=== PATIENT | male | born 1955 | race Caucasian/White ===

== ENCOUNTER → 2022-03-31 | Outpatient (CLI) | payer MEDICARE, BC ==
--- NOTE | 2022-03-31 17:10 | CONS ---
CONSULTATION DATE OF SERVICE: 03/31/2022 This 67-year-old gentleman has been evaluated in [facility] for possible obstructive sleep apnea-hypopnea syndrome. HISTORY OF PRESENT ILLNESS/SLEEP-WAKE EVALUATION: Patient's usual sleep schedule is from 10:30 p.m. until 8 a.m. No problems with falling asleep. No TV in bedroom. The patient sleeps in different positions. He has loud snoring and he wakes up from sleep 3 times with 2 episodes of nocturia. No history of hypnagogic hallucinations, sleep paralysis or cataplexy. [place] Sleepiness Scale increased to 10. The patient may take one nap a day, not every day. PAST MEDICAL HISTORY: Positive for hypertension, prostate carcinoma, acid reflux. PAST SURGICAL HISTORY: Prostatectomy, vasectomy. MEDICATIONS: Lisinopril 10 mg once a day, Cialis 5 mg once a day. REVIEW OF SYSTEMS: Multiple awakenings from sleep, loud snoring, sleepiness during the day. No fevers. No double vision. No recent chest pain. No shortness of breath. No abdominal pain. No bleeding episodes. No blood in the urine. No seizure episodes. PHYSICAL EXAMINATION: GENERAL: Pleasant gentleman without distress. VITAL SIGNS: BP 145/77, HR 77, RR 16, height 5 feet 5 inches, weight 156.6 pounds, body mass index 25.9, temperature 97.2, oxygen saturation at room air 96%. HEENT: PERRLA, EOMI, evaluation of oropharynx showed tongue protrudes midline. Extremely low position of soft palate; Mallampati IV. NECK: Supple, no JVD. Thyroid is not palpable. Neck measures 16 inches in circumference. LUNGS: Clear to percussion and to auscultation. Good air exchange. No wheezing or rhonchi. HEART: S1, S2 regular. No murmurs, gallops, or rubs. ABDOMEN: Soft and nontender. Bowel sounds are present. No organomegaly appreciated. EXTREMITIES: No clubbing or cyanosis. MEDICAL COLLECTOR: Awake, alert, and oriented X3. Cranial nerves 2 to 7 intact. There is no fasciculation or atrophy. noted. No focal deficits observed. IMPRESSION: 1. Loud snoring, multiple awakenings from sleep, extremely low position of soft palate, Mallampati IV, sleepiness, [place] Sleepiness Scale of 10; obstructive sleep apnea-hypopnea syndrome. 2. Hypertension. 3. History of prostate carcinoma, status post prostatectomy. 4. Status post vasectomy. 5. Acid reflux. PLAN: 1. Polysomnography for evaluation of patient's breathing during sleep. 2. CPAP/BiPAP titration if sleep study confirms obstructive sleep apnea-hypopnea syndrome. 3. Preferable position during sleep on the side. 4. No driving if patient feels any sleepiness. 5. I will see patient for follow up visit to explain results of testing and following plan. Thank you very much for referring this patient for consultation. Sincerely, Harris Jacobsen MD, PhD, FAASM Diplomat of [place] [employer] Sleep Medicine [employer] of [place] [employer] Smoking Pipe Repairer of [facility] [place] MMODL / IJN: [id number] /
== END ==
LOC: SLEEP 14:24
PROVIDERS: ATTEND Internal Medicine
DX: G47.33 Obstructive sleep apnea (adult) (pediatric) (principal); I10 Essential (primary) hypertension; K21.9 Gastro-esophageal reflux disease without esophagitis; Z85.46 Personal history of malignant neoplasm of prostate; Z90.79 Acquired absence of other genital organ(s); Z98.52 Vasectomy status; Z79.899 Other long term (current) drug therapy
CPT/HCPCS: 99202

== ENCOUNTER 2022-05-06 07:39 | Day surgery (SDC) | payer MEDICARE, BC ==
[2022-05-04 08:57] VITALS: BMI 25.0
[~2022-05-06 07:39] MED LIST: LACTATED RINGERS 1,000 ML IV SCH
[2022-05-06 08:03] VITALS: TEMP 97.4
[2022-05-06] MEDS ORDERED: LIDOCAINE 2% INJ 20 MG/ML (2 ML VIAL) ONE (08:53)
[2022-05-06] MEDS ORDERED: PROPOFOL 10 MG/ML 20 ML VIAL IV ONE (08:53)
--- NOTE | 2022-05-06 08:56 | P.GSHP ---
History of Present Illness H&P Date: 05/06/22 Chief Complaint: History of colon polyps Is a 67-year-old male who has previously history of colon polyps. His last colonoscopy was over 5 years ago. Patient denies a significant GI complaints. Past Medical History Past Medical History: Cancer, GERD/Reflux, Hypertension, Prostate Disorder Additional Past Medical History / Comment(s): hx colon polyps, prostate cancer History of Any Multi-Drug Resistant Organisms: None Reported Past Surgical History: Orthopedic Surgery, Prostate Surgery Additional Past Surgical History / Comment(s): arthroscopy left knee, vasectomy Past Anesthesia/Blood Transfusion Reactions: Previous Problems w/ Anesthesia Additional Past Anesthesia/Blood Transfusion Reaction / Comment(s): "took me a long time to come out" groggy for couple days Smoking Status: Never smoker - Past Family History Father Family Medical History: Cancer Brother(s) Family Medical History: Cancer Medications and Allergies Home Medications Medication Instructions Recorded Confirmed Type Acetaminophen [Tylenol Extra 500 mg PO DIRECTED PRN 05/04/22 05/06/22 History Strength] Cholecalciferol (Vitamin D3) 250 mcg PO DAILY 05/04/22 05/06/22 History [Vitamin D3 (125 MCG = 5,000 IU)] Ibuprofen [Motrin Ib] 400 mg PO BID PRN 05/04/22 05/06/22 History Iodoral 12.5 mg PO DAILY 05/04/22 05/06/22 History Multivitamins, Thera [Multivitamin 1 tab PO DAILY 05/04/22 05/06/22 History (formulary)] [place]-3/Dha/Epa/Fish Oil [Fish Oil 1 each PO DAILY 05/04/22 05/06/22 History 1,000 mg Softgel] Zinc 25 mg PO DAILY 05/04/22 05/06/22 History lisinopriL [Prinivil] 10 mg PO DAILY 05/04/22 05/06/22 History tadalafiL [Cialis] 5 mg PO DAILY 05/04/22 05/06/22 History Allergies Allergy/AdvReac Type Severity Reaction Status Date / Time Penicillins Allergy Unknown Verified 05/06/22 07:52 Childhood Surgical - Exam Vital Signs Temp Pulse Resp BP Pulse Ox 97.4 F L 59 L 18 166/82 98 05/06/22 07:58 05/06/22 07:58 05/06/22 07:58 05/06/22 07:58 05/06/22 07:58 - General well developed, well nourished, no distress - Eyes PERRL - ENT normal pinna - Neck no masses - Respiratory normal expansion - Cardiovascular Rhythm: regular - Abdomen Abdomen: soft, non tender Assessment and Plan Assessment: History of colon polyps. We'll perform colonoscopy.
--- NOTE | 2022-05-06 09:08 | P.OP ---
Date of Procedure: 05/06/22 Preoperative Diagnosis: History of colon polyps Postoperative Diagnosis: Normal colonoscopy Procedure(s) Performed: Colonoscopy Anesthesia: MAC Surgeon: Theron Li Pathology: none sent Condition: stable Disposition: PACU Description of Procedure: PROCEDURE: The patient was placed on the endoscopy table in the lateral position. Digital rectal examination was performed which revealed no abnormalities. The prostate was symmetrical without nodules. Flexible colonoscope was then placed in the patient's anus and passed throughout the entire colon. The ileocecal valve was visualized. The cecum, ascending, transverse, descending and sigmoid colon were normal. The rectum was normal as well. There were no masses, polyps or diverticula noted in the entire colon.
[2022-05-06 09:11] VITALS: RESP 16
[2022-05-06 09:34] VITALS: BP 154/81; PULSE 76
== END 2022-05-06 09:50 | disposition home or self-care (01) ==
LOC: ORWHC2ENDO 07:39
PROVIDERS: ATTEND Surgery
DX: Z86.010 Personal history of colon polyps (principal); K21.9 Gastro-esophageal reflux disease without esophagitis; I10 Essential (primary) hypertension; Z85.46 Personal history of malignant neoplasm of prostate; Z98.52 Vasectomy status; Z79.899 Other long term (current) drug therapy; Z88.0 Allergy status to penicillin; Z80.9 Family history of malignant neoplasm, unspecified
CPT/HCPCS: 45378; J2704; J2001

== ENCOUNTER → 2022-09-15 | Outpatient (CLI) | payer MEDICARE, BC ==
--- NOTE | 2022-09-15 10:06 | CT ---
EXAMINATION TYPE: CT sinus wo con DATE OF EXAM: 09/15/2022 COMPARISON: NONE HISTORY: Chronic Sinusitis CT DLP: 603 mGycm. Automated Exposure Control for Dose Reduction was Utilized. TECHNIQUE: CT scan of the sinuses is performed without contrast, axial images are obtained, coronal r eformatted images are also reviewed. FINDINGS: The paranasal sinuses including the frontal, ethmoid, sphenoid, and maxillary sinuses bila terally are well-aerated without abnormal opacification or suspicious air-fluid levels. The ostiomea norbert complex is patent bilaterally on coronal image 16. Nasal septum is deviated to right of midline. Visualized portion of mastoid air cells show no abnormal opacification. The globes are intact bilate rally. Visualized brain parenchyma is within normal limits. IMPRESSION: The sinuses are clear and the ostiomeatal complex is patent bilaterally.
== END | disposition home or self-care (01) ==
LOC: RADCTMAIN 09:31
PROVIDERS: ATTEND Otolaryngology
DX: J32.9 Chronic sinusitis, unspecified (principal)
CPT/HCPCS: 70486

== ENCOUNTER 2022-11-23 08:44 | Inpatient (IN) | payer MEDICARE, BC ==
[2022-11-23 09:01] LABS: Appearance,Urine Clear (Clear); Bilirubin,Urine Negative (Negative); Blood,Urine Negative (Negative); Color,Urine Yellow; Glucose,Urine (UA) Negative (Negative); Ketones,Urine Negative (Negative); Leukocyte Esterase,Urine Negative (Negative); Nitrite,Urine Negative (Negative); Protein,Urine Trace (Negative); Specific Gravity,Urine 1.021 (1.001-1.035); Urobilinogen,Urine <2.0 mg/dL (<2.0)
--- NOTE | 2022-11-23 10:21 | ED ---
General Adult HPI - General Source: patient Mode of arrival: ambulatory Limitations: no limitations <Adelaida Green - Last Filed: 11/23/22 10:19> - General Source: RN notes reviewed, old records reviewed <Francine Horton - Last Filed: 11/23/22 13:23> - General Chief complaint: Abdominal Pain Stated complaint: possible bowel blockage Time Seen by Provider: 11/23/22 10:19 - History of Present Illness Initial comments: 67-year-old presents to the emergency department with chief complaint of abdominal pain that started at 0100 this morning. He describes his abdominal pain as a "bloating feeling." Last bowel movement was upon arrival. However he notes this feels the same as when he last had a small bowel obstruction. (Adelaida Green) Patient is a 67-year-old male presenting to the emergency Department with complaints of severe abdominal pain that started around 1 AM this morning. Patient does have history of bowel obstruction the past and he states this feels similar. The pain awoke him from sleep around 1 AM and has been persistent so he came in for further evaluation. He did try Tums, Pepcid without improvement. When he got to the ER, he did have a small bowel movement which is mostly liquid. He does feel bloated and slightly distended. His pain is about a 9/10. He does endorse some nausea. Patient's is at bedside and states that in the right here, the pain was so severe that he did turn "hua" and felt like he might pass out. He admits to history of prostate surgery, no abdominal history. Patient denies any chest pain or shortness of breath, no fevers or chills. He states yesterday he felt perfectly fine. He has no further complaints. (Francine Horton) - Related Data Home Medications Medication Instructions Recorded Confirmed Cholecalciferol (Vitamin D3) 250 mcg PO DAILY 05/04/22 11/23/22 [Vitamin D3 (125 MCG = 5,000 IU)] Multivitamins, Thera [Multivitamin 1 tab PO DAILY 05/04/22 11/23/22 (formulary)] [place]-3/Dha/Epa/Fish Oil [Fish Oil 1 cap PO DAILY 05/04/22 11/23/22 1,000 mg Softgel] Zinc 25 mg PO DAILY 05/04/22 11/23/22 lisinopriL [Prinivil] 10 mg PO DAILY 05/04/22 11/23/22 tadalafiL [Cialis] 5 mg PO DAILY 05/04/22 11/23/22 Ascorbic Acid [Vitamin C] 1,000 mg PO DAILY 11/23/22 11/23/22 Quercetin 500mg Tab 500 mg PO DAILY 11/23/22 11/23/22 Allergies Allergy/AdvReac Type Severity Reaction Status Date / Time Penicillins Allergy Rash/Hives Verified 11/23/22 11:55 Review of Systems ROS Other: All systems not noted in ROS Statement are negative. <Adelaida Green - Last Filed: 11/23/22 10:19> ROS Other: All systems not noted in ROS Statement are negative. <Francine Horton - Last Filed: 11/23/22 13:23> ROS Statement: Those systems with pertinent positive or pertinent negative responses have been documented in the HPI. Past Medical History Past Medical History: Hypertension, Prostate Disorder Additional Past Medical History / Comment(s): Bowel obstruction, prostate CA History of Any Multi-Drug Resistant Organisms: None Reported Past Surgical History: Prostate Surgery Past Psychological History: No Psychological Hx Reported Smoking Status: Never smoker Past Alcohol Use History: Occasional Past Drug Use History: None Reported <Adelaida Green - Last Filed: 11/23/22 10:19> General Exam Limitations: no limitations <Adelaida Green - Last Filed: 11/23/22 10:19> <Francine Horton - Last Filed: 11/23/22 13:23> - General Exam Comments Initial Comments: GENERAL: Patient is well-developed and well-nourished. Patient is nontoxic and in no acute distress, but looks very uncomfortable. HEAD: Atraumatic, normocephalic. EYES: Pupils equal round and reactive to light, extraocular movements intact, sclera anicteric, conjunctiva are normal. Eyelids were unremarkable. ENT: Nares patent, oropharynx clear without exudates. Moist mucous membranes. NECK: Normal range of motion, supple without lymphadenopathy or JVD. LUNGS: Unlabored respirations. Breath sounds clear to auscultation bilaterally and equal. No wheezes rales or rhonchi. HEART: Regular rate and rhythm without murmurs, rubs or gallops. ABDOMEN: Patient has generalized abdominal discomfort, more severe in the middle of his abdomen. He does appear slightly distended. Soft. Hypoactive bowel sounds. No guarding, no rebound. No masses appreciated. : Deferred MUSCULOSKELETAL: Normal extremities with adequate strength and normal range of motion, no pitting or edema. No clubbing or cyanosis. NEUROLOGICAL: Patient is alert and oriented x 3. Motor and sensory are also intact. Cranial nerves II through XII grossly intact. Symmetrical smile. Normal speech, normal gait. PSYCH: Normal mood, normal affect. SKIN: Warm, Dry, normal turgor, no rashes or lesions noted. (Francine Horton) Course Vital Signs 11/23/22 08:45 Temperature 98.6 F Pulse Rate 63 Respiratory 20 Rate Blood Pressure 144/78 O2 Sat by Pulse 97 Oximetry Medical Decision Making - Lab Data Result diagrams: 11/23/22 11:04 11/23/22 11:04 <Francine Horton - Last Filed: 11/23/22 13:23> - Medical Decision Making Patient is a 67-year-old male here with abdominal pain started at 1 AM this morning. He has a history of bowel obstructions and this feels similar. Stable upon arrival. Laboratory studies showed a leukocytosis of 10.9, lactic acid is normal. Urine is negative for infection. CT the abdomen and pelvis shows findings suspicious for partial or early complete small bowel section with a right lower quadrant transition point. I spoke with Dr. Li who accepts admission. Patient was reevaluated, his pain has improved. Will place an NG tube and patient will be admitted to the hospital. I also spoke to ANGELA Leyva. Case discussed with Dr. Skinner. Was pt. sent in by a medical professional or institution ([facility], YOUTH WORKER, urgent care, hospital, or senior living...) When possible be specific @ -[No] Did you speak to anyone other than the patient for history (EMS, parent, family, police, friend...)? What history was obtained from this source @ -[No] Did you review nursing and triage notes (agree or disagree)? Why? @ -[I reviewed and agree with nursing and triage notes] Were old charts reviewed (outside hosp., previous admission, EMS record, old EKG, old radiological studies, urgent care reports/EKG's, senior living records)? Report findings @ -[No old charts were reviewed] Differential Diagnosis (chest pain, altered mental status, abdominal pain women, abdominal pain men, vaginal bleeding, weakness, fever, dyspnea, syncope, headache, dizziness, GI bleed, back pain, seizure, CVA, palpatations, mental health)? @ -[Differential Abdominal Pain Men: Appendicitis, cholecystitis, diverticulosis, ischemic bowel, pancreatitis, hepatitis, UTI, gastroenteritis, AAA, incarcerated hernia, bowel obstruction, constipation, inflammatory bowel, hepatitis, peptic ulcer disease, splenic infar ction, perforated viscus, testicular torsion, this is not meant to be an all- inclusive list] EKG interpreted by me (3pts min.). @ -[As above] X-rays interpreted by me (1pt min.). @ -[KUB concerning for polyps checks and] CT interpreted by me (1pt min.). @ -[small bowel obstruction] U/S interpreted by me (1pt. min.). @ -[None done] What testing was considered but not performed or refused? (CT, X-rays, U/S, labs)? Why? @ -[None] What meds were considered but not given or refused? Why? @ -[None] Did you discuss the management of the patient with other professionals (professionals i.e. , PA, YOUTH WORKER, lab, RT, psych nurse, social sciences chair, director of surgery, teacher, hearing officer, casework manager)? Give summary @ -[Dr. Li, Autumn] Was smoking cessation discussed for >3mins.? @ -[No] Was critical care preformed (if so, how long)? @ -[No] Were there social determinants of health that impacted care today? How? (Homelessness, low income, unemployed, alcoholism, drug addiction, transportation, low edu. Level, literacy, decrease access to med. care, fci, rehab)? @ -[No] Was there de-escalation of care discussed even if they declined (Discuss DNR or withdrawal of care, Hospice)? DNR status @ -[No] What co-morbidities impacted this encounter? (DM, HTN, Smoking, COPD, CAD, Cancer, CVA, ARF, Chemo, Hep., AIDS, mental health diagnosis, sleep apnea, morbid obesity)? @ -[None] Was patient admitted / discharged? Hospital course, mention meds given and route, prescriptions, significant lab abnormalities, going to OR and other [facility] netricia info. @ -[admitted to surgery] Undiagnosed new problem with uncertain prognosis? @ -[No] Drug Therapy requiring intensive monitoring for toxicity (Heparin, Nitro, Insulin, Cardizem)? @ -[No] Were any procedures done? @ -[No] Diagnosis/symptom? @ -[abdominal pain, SBO Acute, or Chronic, or Acute on Chronic? @ -[acute] Side effects of treatment? @ -[No] Exacerbation, Progression, or Severe Exacerbation? @ -[No] Poses a threat to life or bodily function? How? (Chest pain, [place], [place], pneumonia, PE, COPD, DKA, ARF, appy, cholecystitis, CVA, Diverticulitis, Homicidal, Suicidal, threat to staff... and all critical care pts) @ -[No] (Francine Horton) - Lab Data Lab Results 11/23/22 11/23/22 11/23/22 Range/Units 08:50 11:04 11:04 WBC 10.9 H (3.8-10.6) k/uL RBC 5.09 (4.30-5.90) m/uL Hgb 15.1 (13.0-17.5) gm/dL Hct 44.8 (39.0-53.0) % MCV 88.0 (80.0-100.0) fL MCH 29.6 (25.0-35.0) pg MCHC 33.6 (31.0-37.0) g/dL RDW 12.9 (11.5-15.5) % Plt Count 203 (150-450) k/uL MPV 8.3 Neutrophils % 86 % Lymphocytes % 6 % Monocytes % 6 % Eosinophils % 0 % Basophils % 0 % Neutrophils # 9.4 H (1.3-7.7) k/uL Lymphocytes # 0.6 L (1.0-4.8) k/uL Monocytes # 0.7 (0-1.0) k/uL Eosinophils # 0.0 (0-0.7) k/uL Basophils # 0.0 (0-0.2) k/uL Sodium 138 (137-145) mmol/L Potassium 4.6 (3.5-5.1) mmol/L Chloride 104 (98-107) mmol/L Carbon Dioxide 30 (22-30) mmol/L Anion Gap 4 mmol/L BUN 17 (9-20) mg/dL Creatinine 0.66 (0.66-1.25) mg/dL Est GFR (CKD-EPI)AfAm >90 (>60 ml/min/1.73 sqM) Est GFR (CKD-EPI)NonAf >90 (>60 ml/min/1.73 sqM) Glucose 116 H (74-99) mg/dL Plasma Lactic Acid [place] (0.7-2.0) mmol/L Calcium 9.2 (8.4-10.2) mg/dL Total Bilirubin 0.6 (0.2-1.3) mg/dL AST 25 (17-59) U/L ALT 24 (4-49) U/L Alkaline Phosphatase 76 (38-126) U/L Total Protein 7.1 (6.3-8.2) g/dL Albumin 4.1 (3.5-5.0) g/dL Urine Color Yellow Urine Appearance Clear (Clear) Urine pH 7.0 (5.0-8.0) Ur Specific [place] 1.021 (1.001-1.035) Urine Protein Trace H (Negative) Urine Glucose (UA) Negative (Negative) Urine Ketones Negative (Negative) Urine Blood Negative (Negative) Urine Nitrite Negative (Negative) Urine Bilirubin Negative (Negative) Urine Urobilinogen <2.0 (<2.0) mg/dL Ur Leukocyte Esterase Negative (Negative) 11/23/22 Range/Units 11:04 WBC (3.8-10.6) k/uL RBC (4.30-5.90) m/uL Hgb (13.0-17.5) gm/dL Hct (39.0-53.0) % MCV (80.0-100.0) fL MCH (25.0-35.0) pg MCHC (31.0-37.0) g/dL RDW (11.5-15.5) % Plt Count (150-450) k/uL MPV Neutrophils % % Lymphocytes % % Monocytes % % Eosinophils % % Basophils % % Neutrophils # (1.3-7.7) k/uL Lymphocytes # (1.0-4.8) k/uL Monocytes # (0-1.0) k/uL Eosinophils # (0-0.7) k/uL Basophils # (0-0.2) k/uL Sodium (137-145) mmol/L Potassium (3.5-5.1) mmol/L Chloride (98-107) mmol/L Carbon Dioxide (22-30) mmol/L Anion Gap mmol/L BUN (9-20) mg/dL Creatinine (0.66-1.25) mg/dL Est GFR (CKD-EPI)AfAm (>60 ml/min/1.73 sqM) Est GFR (CKD-EPI)NonAf (>60 ml/min/1.73 sqM) Glucose (74-99) mg/dL Plasma Lactic Acid [place] 1.3 (0.7-2.0) mmol/L Calcium (8.4-10.2) mg/dL Total Bilirubin (0.2-1.3) mg/dL AST (17-59) U/L ALT (4-49) U/L Alkaline Phosphatase (38-126) U/L Total Protein (6.3-8.2) g/dL Albumin (3.5-5.0) g/dL Urine Color Urine Appearance (Clear) Urine pH (5.0-8.0) Ur Specific [place] (1.001-1.035) Urine Protein (Negative) Urine Glucose (UA) (Negative) Urine Ketones (Negative) Urine Blood (Negative) Urine Nitrite (Negative) Urine Bilirubin (Negative) Urine Urobilinogen (<2.0) mg/dL Ur Leukocyte Esterase (Negative) Disposition <Adelaida Green - Last Filed: 11/23/22 10:19> Decision Date: 11/23/22 Decision Time: 13:22 <Francine Horton - Last Filed: 11/23/22 13:23> Clinical Impression: Small bowel obstruction Disposition: ADMITTED IP TO THIS [facility] Condition: Stable Referrals: Kishan Garay DO [Primary Care Provider] - 1-2 days
[2022-11-23] MEDS ORDERED: MORPHINE SULFATE 4 MG/ML SYRINGE IVP STA (11:04)
[2022-11-23] MEDS ORDERED: SODIUM CHLORIDE 0.9% 1,000 ML IV STA (11:04)
[2022-11-23] MEDS ORDERED: ONDANSETRON 4 MG/2 ML VIAL IVP STA (11:04)
--- NOTE | 2022-11-23 11:20 | XR ---
EXAMINATION TYPE: XR KUB DATE OF EXAM: 11/23/2022 CLINICAL HISTORY: Diffuse abdominal pain, onset today, history of prior obstruction TECHNIQUE: Upright images of the abdomen are obtained. COMPARISON: None. FINDINGS: Multiple mildly dilated loops of small bowel with air-fluid levels in the central and left abdomen. Gas and stool are seen throughout the colon. No free intraperitoneal air. Lung bases are destiny ar. Degenerative changes of the spine. IMPRESSION: Multiple mildly dilated loops of small bowel with air-fluid levels. Gas and stool are present through out the colon. Findings could relate to localized ileus versus an early or partial obstruction, espec ially with known prior history.
[2022-11-23 11:40] LABS: ALT 24 U/L (4-49); AST 25 U/L (17-59); African American GFR (CKD) >90 (>60 ml/min/1.73 sqM); Albumin 4.1 g/dL (3.5-5.0); Alkaline Phosphatase 76 U/L (38-126); Anion Gap 4 mmol/L; Blood Urea Nitrogen 17 mg/dL (9-20); Calcium 9.2 mg/dL (8.4-10.2); Carbon Dioxide 30 mmol/L (22-30); Chloride 104 mmol/L (98-107); Glucose 116 mg/dL (74-99); Non-African American GFR(CKD) >90 (>60 ml/min/1.73 sqM); Potassium 4.6 mmol/L (3.5-5.1); Sodium 138 mmol/L (137-145); Total Bilirubin 0.6 mg/dL (0.2-1.3); Total Protein 7.1 g/dL (6.3-8.2)
[2022-11-23 11:47] LABS: Basophils % (A) 0 %; Eosinophils % (A) 0 %; HCT 44.8 % (39.0-53.0); HGB 15.1 gm/dL (13.0-17.5); Lymphocytes # (A) 0.6 k/uL (1.0-4.8); Lymphocytes % (A) 6 %; MCH 29.6 pg (25.0-35.0); MCHC 33.6 g/dL (31.0-37.0); Mean Platelet Volume 8.3; Monocytes # (A) 0.7 k/uL (0-1.0); Monocytes % (A) 6 %; Neutrophils # (A) 9.4 k/uL (1.3-7.7); Neutrophils % (A) 86 %; Platelet Count 203 k/uL (150-450); RBC 5.09 m/uL (4.30-5.90); RDW 12.9 % (11.5-15.5); WBC 10.9 k/uL (3.8-10.6)
--- NOTE | 2022-11-23 12:39 | CT ---
EXAMINATION TYPE: CT abdomen pelvis w con DATE OF EXAM: 11/23/2022 COMPARISON: None HISTORY: abdominal pain, history of obstructions CT DLP: 851.2 mGycm CONTRAST: CT scan of the abdomen and pelvis is performed without Oral Contrast and with IV Contrast, patient in jected with 100 cc mL of Isovue 300. FINDINGS: LUNG BASES-: No visible nodule. No infiltrate. LIVER/GB: No calcified gallstones. No space occupying hepatic lesion. Biliary tree is of normal ca liber. PANCREAS: No inflammation. No distinct mass. SPLEEN: No splenic enlargement. No lesion seen. ADRENALS: No nodule. No thickening. KIDNEYS/BLADDER: No hydronephrosis. No nephrolithiasis. No distinct renal mass. Urinary bladder g rossly unremarkable. BOWEL: There is nonvisualization of the appendix. There is mild dilatation of the small bowel measuri ng up to 3.5 cm. There appears to be a right lower quadrant transition. No significant decompression of the colon at this time. No evidence for free air or abscess. No inflammatory process seen. GENITAL ORGANS: No gross abnormality. LYMPH NODES: No greater than 1cm abdominal or pelvic lymph nodes are appreciated. AORTA: No significant abnormality. OSSEOUS STRUCTURES: Severe degenerative change in the lumbar spine. OTHER: No significant additional abnormality is seen. IMPRESSION: 1. Findings suspicious for partial or early complete small bowel obstruction with right lower quadran t transition suggested. Findings likely related to adhesions.
[2022-11-23] MEDS ORDERED: NALOXONE 0.4 MG/ML 1 ML VIAL IV PRN (13:23)
[2022-11-23] MEDS ORDERED: ONDANSETRON 4 MG/2 ML VIAL IVP PRN (13:24)
[2022-11-23] MEDS ORDERED: MORPHINE SULFATE 4 MG/ML SYRINGE IV PRN (13:24)
[2022-11-23] MEDS: SODIUM CHLORIDE 0.9% 1,000 ML IV SCH ×2 (13:38→23:17)
--- NOTE | 2022-11-23 14:25 | P.GSHP ---
History of Present Illness H&P Date: 11/23/22 CHIEF COMPLAINT: Abdominal HISTORY OF PRESENT ILLNESS: This is a 67-year-old male with a known history of small bowel obstructions been treated conservatively in the past. Patient reports that he started to have abdominal pain around 1:00 this morning. He has been feeling more bloated distended. Pain located in the middle of the abdomen above the umbilicus. He denies any nausea or vomiting. He had a decrease in his bowel movements. He usually has 2-3 bowel movements a day. He had a very small liquidy stool yesterday and a very small liquidy stool in the ER this morning. He is no longer having any flatus. He reports that he feels similar to his previous bowel obstructions. He had a bowel obstruction in 2019 in 2020. Past abdominal surgical history includes a robotic prostate surgery for prostate cancer. In 2008. Patient had computed tomography scan of abdomen and pelvis showing a partial or early complete small bowel obstruction. Patient had NG tube placed in ER. PAST MEDICAL HISTORY: Hypertension, prostate cancer PAST SURGICAL HISTORY: See below MEDICATIONS: See below ALLERGIES: See below SOCIAL HISTORY: No illicit drug use. REVIEW OF SYSTEMS: CONSTITUTIONAL: Denies fever or chills. HEENT: Denies blurred vision, vision changes, or eye pain. Denies hemoptysis CARDIOVASCULAR: Denies chest pain or pressure. RESPIRATORY: No shortness of breath. GASTROINTESTINAL: See HPI for pertinent findings HEMATOLOGIC: Denies bleeding disorders. GENITOURINARY: Denies any blood in urine or increased urinary frequency. SKIN: Denies pruitis. Denies rash. PHYSICAL EXAM: VITAL SIGNS: Reviewed GENERAL: Well-developed in no acute distress. HEENT: No sclera icterus. Extraocular movements grossly intact. Moist buccal mucosa. Head is atraumatic, normocephalic. No nasal drainage. ABDOMEN: Soft. Mildly distended. Tenderness with palpation above the umbili cus mid abdomen NEUROLOGIC: Alert and oriented. Cranial nerves II through XII grossly intact. LABORATORY DATA: WBC 10.9 hgb 15.1 plt 203 Na 138 k 4.6 cr 0.66 lactic acid 1.3 LFTs normal IMAGING: computed tomography scan abdomen and pelvis findings suspicious for partial or early complete small bowel obstruction with right lower quadrant transition point suggested. Findings likely related to adhesions. ASSESSMENT: 1. Partial or early complete small bowel obstruction with right lower quadrant transition point likely due to adhesions 2. History of prior small bowel obstructions treated conservatively 3. History of robotic prostate surgery PLAN: -Place NG tube for decompression -Keep patient nothing by mouth -Patient is tentatively scheduled for lysis of adhesions tomorrow with Dr. Li -Continue IV fluids -Continue pain medication as needed -Continue antiemetics as needed -Medicine service consulted for medical management Physician Clip Riveter note has been reviewed by physician. Signing provider agrees with the documented findings, assessment, and plan of care. Past Medical History Past Medical History: Hypertension, Prostate Disorder Additional Past Medical History / Comment(s): Bowel obstruction, prostate CA History of Any Multi-Drug Resistant Organisms: None Reported Past Surgical History: Prostate Surgery Past Psychological History: No Psychological Hx Reported Smoking Status: Never smoker Past Alcohol Use History: Occasional Past Drug Use History: None Reported Medications and Allergies Home Medications Medication Instructions Recorded Confirmed Type Cholecalciferol (Vitamin D3) 250 mcg PO DAILY 05/04/22 11/23/22 History [Vitamin D3 (125 MCG = 5,000 IU)] Multivitamins, Thera [Multivitamin 1 tab PO DAILY 05/04/22 11/23/22 History (formulary)] [place]-3/Dha/Epa/Fish Oil [Fish Oil 1 cap PO DAILY 05/04/22 11/23/22 History 1,000 mg Softgel] Zinc 25 mg PO DAILY 05/04/22 11/23/22 History lisinopriL [Prinivil] 10 mg PO DAILY 05/04/22 11/23/22 History tadalafiL [Cialis] 5 mg PO DAILY 05/04/22 11/23/22 History Ascorbic Acid [Vitamin C] 1,000 mg PO DAILY 11/23/22 11/23/22 History Quercetin 500mg Tab 500 mg PO DAILY 11/23/22 11/23/22 History Allergies Allergy/AdvReac Type Severity Reaction Status Date / Time Penicillins Allergy Rash/Hives Verified 11/23/22 11:55 Surgical - Exam Vital Signs Temp Pulse Resp BP Pulse Ox 98.6 F 63 20 144/78 97 11/23/22 08:45 11/23/22 08:45 11/23/22 08:45 11/23/22 08:45 11/23/22 08:45 Results - Labs 11/23/22 11:04 11/23/22 11:04 Abnormal Lab Results - Last 24 Hours (Table) 11/23/22 11/23/22 11/23/22 Range/Units 08:50 11:04 11:04 WBC 10.9 H (3.8-10.6) k/uL Neutrophils # 9.4 H (1.3-7.7) k/uL Lymphocytes # 0.6 L (1.0-4.8) k/uL Glucose 116 H (74-99) mg/dL Urine Protein Trace H (Negative) Diabetes panel 11/23/22 Range/Units 11:04 Sodium 138 (137-145) mmol/L Potassium 4.6 (3.5-5.1) mmol/L Chloride 104 (98-107) mmol/L Carbon Dioxide 30 (22-30) mmol/L BUN 17 (9-20) mg/dL Creatinine 0.66 (0.66-1.25) mg/dL Glucose 116 H (74-99) mg/dL Calcium 9.2 (8.4-10.2) mg/dL AST 25 (17-59) U/L ALT 24 (4-49) U/L Alkaline Phosphatase 76 (38-126) U/L Total Protein 7.1 (6.3-8.2) g/dL Albumin 4.1 (3.5-5.0) g/dL Calcium panel 11/23/22 Range/Units 11:04 Calcium 9.2 (8.4-10.2) mg/dL Albumin 4.1 (3.5-5.0) g/dL Pituitary panel 11/23/22 Range/Units 11:04 Sodium 138 (137-145) mmol/L Potassium 4.6 (3.5-5.1) mmol/L Chloride 104 (98-107) mmol/L Carbon Dioxide 30 (22-30) mmol/L BUN 17 (9-20) mg/dL Creatinine 0.66 (0.66-1.25) mg/dL Glucose 116 H (74-99) mg/dL Calcium 9.2 (8.4-10.2) mg/dL Adrenal panel 11/23/22 Range/Units 11:04 Sodium 138 (137-145) mmol/L Potassium 4.6 (3.5-5.1) mmol/L Chloride 104 (98-107) mmol/L Carbon Dioxide 30 (22-30) mmol/L BUN 17 (9-20) mg/dL Creatinine 0.66 (0.66-1.25) mg/dL Glucose 116 H (74-99) mg/dL Calcium 9.2 (8.4-10.2) mg/dL Total Bilirubin 0.6 (0.2-1.3) mg/dL AST 25 (17-59) U/L ALT 24 (4-49) U/L Alkaline Phosphatase 76 (38-126) U/L Total Protein 7.1 (6.3-8.2) g/dL Albumin 4.1 (3.5-5.0) g/dL
--- NOTE | 2022-11-23 14:45 | XR ---
EXAMINATION TYPE: XR KUB portable DATE OF EXAM: 11/23/2022 CLINICAL HISTORY: Small bowel obstruction, NG tube placement TECHNIQUE: Single portable upright image of the upper abdomen was obtained COMPARISON: Radiograph and CT earlier same day FINDINGS: NG tube tip projects over the stomach. There remains mildly dilated loops of small bowel w ithin the central upper abdomen. Gas and stool is again seen within the colon. Hyperdense contrast se en within the renal calyces from recent IV contrast. The lung bases are clear. IMPRESSION: Appropriate NG tube placement. Otherwise stable findings.
[2022-11-23] MEDS: HYDROmorphone 1 MG/ML 1 ML SYRINGE IVP PRN ×3 (17:16→23:08)
[2022-11-23] MEDS ORDERED: cloNIDine 0.1 MG/24HR PATCH TRANSDERM SCH (19:30)
[2022-11-24] MEDS: HYDROmorphone 1 MG/ML 1 ML SYRINGE IVP PRN ×3 (04:30→11:26)
[2022-11-24] MEDS: SODIUM CHLORIDE 0.9% 1,000 ML IV SCH ×2 (08:16→19:31)
[2022-11-24 10:33] LABS: HCT 41.3 % (39.0-53.0); HGB 13.3 gm/dL (13.0-17.5); MCH 28.8 pg (25.0-35.0); MCHC 32.2 g/dL (31.0-37.0); MCV 89.5 fL (80.0-100.0); Mean Platelet Volume 8.3; Platelet Count 195 k/uL (150-450); RBC 4.61 m/uL (4.30-5.90); RDW 13.1 % (11.5-15.5); WBC 6.8 k/uL (3.8-10.6)
[2022-11-24] MEDS ORDERED: HEPARIN SODIUM,PORCINE/PF 5,000 UNIT/0.5 ML SYRINGE SQ ONE (12:08)
[2022-11-24 12:10] LABS: African American GFR (CKD) >90 (>60 ml/min/1.73 sqM); Anion Gap 3 mmol/L; Blood Urea Nitrogen 15 mg/dL (9-20); Calcium 8.2 mg/dL (8.4-10.2); Carbon Dioxide 28 mmol/L (22-30); Chloride 106 mmol/L (98-107); Glucose 107 mg/dL (74-99); Non-African American GFR(CKD) >90 (>60 ml/min/1.73 sqM); Potassium 4.4 mmol/L (3.5-5.1); Sodium 137 mmol/L (137-145)
[2022-11-24] MEDS ORDERED: LACTATED RINGERS 1,000 ML IV ONE ×2 (12:12→15:05)
[2022-11-24] MEDS ORDERED: MIDAZOLAM 2 MG/2 ML VIAL IVP ONE ×3 (12:35→16:07)
[2022-11-24] MEDS ORDERED: ONDANSETRON 4 MG/2 ML VIAL IVP ONE (13:08)
[2022-11-24] MEDS ORDERED: DEXAMETHASONE SOD PHOSPHATE 4 MG/ML 1 ML VIAL IVP ONE (13:09)
[2022-11-24] MEDS ORDERED: NALOXONE 0.4 MG/ML 1 ML VIAL IV PRN (13:40)
--- NOTE | 2022-11-24 13:40 | P.ANPRN ---
Procedure Note - Anesthesia - Epidural/Spinal Epidural Continuous Time Out Performed: Yes Date of Procedure: 11/24/22 Procedure Start Time: 12:34 Procedure Stop Time: 13:02 Location of Patient: PreOp Indication: Acute Post-Operative Pain Sedation Type: Sedate with meaningful contact maintained Preparation: Sterile Dressing Position: Sitting Catheter: Indwelling Needle Guage: 18 Blood Aspirated: No Pain Paresthesia on Injection Noted: No Events: Uneventful and Well Tolerated (test dose xylocaine 1.5% 3cc given with no side effects)
[2022-11-24] MEDS ORDERED: GLYCOPYRROLATE 0.2 MG/ML 2 ML VIAL ONE (14:22)
[2022-11-24] MEDS ORDERED: SUCCINYLCHOLINE CHLORIDE 200 MG/10 ML VIAL IV ONE (14:22)
[2022-11-24] MEDS ORDERED: ePHEDrine 50 MG/ML 1 ML VIAL ONE (14:22)
[2022-11-24] MEDS ORDERED: LIDOCAINE 2% INJ 20 MG/ML (2 ML VIAL) ONE (14:22)
[2022-11-24] MEDS ORDERED: PROPOFOL 10 MG/ML 20 ML VIAL IV ONE (14:22)
[2022-11-24] MEDS ORDERED: ROCURONIUM 10 MG/ML (5 ML VIAL) IV ONE (14:22)
[2022-11-24] MEDS ORDERED: KETAMINE 10 MG/ML 20 ML VIAL ONE (14:22)
[2022-11-24] MEDS ORDERED: fentaNYL (PF) 50 MCG/ML 2 ML AMP ONE (14:22)
[2022-11-24] MEDS ORDERED: MIDAZOLAM 2 MG/2 ML VIAL ONE (14:22)
[2022-11-24] MEDS ORDERED: NEOSTIGMINE 1 MG/ML 10 ML VIAL ONE (14:22)
[2022-11-24] MEDS ORDERED: SODIUM CHLORIDE 0.9% 50 ML with ceFAZolin 2,000 MG IV ONE ×2 (14:25)
--- NOTE | 2022-11-24 15:21 | P.OP ---
Date of Procedure: 11/24/22 Preoperative Diagnosis: small bowel obstruction Postoperative Diagnosis: small bowel obstruction secondary to adhesions Procedure(s) Performed: exploratory laparotomy Lysis of adhesion Incisional appendectomy Anesthesia: SHEFALI Surgeon: Theron Li Estimated Blood Loss (ml): 25 Pathology: other (appendix) Condition: stable Disposition: PACU Description of Procedure: patient's placed on the operating table in the supine position. he received general anesthesia. the circular nurse attempted to place a Espino catheter however there was resistance in the urethra. This point the Espino catheter was aborted. His abdomen was prepped and draped usual fashion. the abdomen was entered through minimal low midline incision. The abdomen was entered. There was some serosanguineous ascites in the abdominal cavity. The bowel was grossly dilated. The bowel was followed down to the level of the terminal ileum. And in the right lower quadrant there was adhesive band causing a partial mechanical obstruction. The band was lysed. The bowel was then run from the ileocecal yousuf ve to the ligament of Treitz. No other obstruction was seen. An incidental appendectomy was performed. The nasal pedicles divided the Enseal device and the base of the appendix was suture-ligated with 2-0 silk ties and then the appendix was transected sent to pathology. The penicillin base was then inverted into the cecum and secured with a 3-0 GI silk Z stitch. The abdomen was area no being seen. The fascia closed with looped #1. Skin was closed deana. Patient top she will was sent to recovery room in stable condition.
[2022-11-24] MEDS: ROPIVACAINE 250 MG, HYDROMORPHONE (PF) 5 MG in SODIUM CHLORIDE 0.9% 200 ML EPIDURAL PRN ×4 (15:22→17:13)
[2022-11-24] MEDS ORDERED: fentaNYL (PF) 50 MCG/1 ML VIAL IVP ONE (16:07)
[2022-11-24] MEDS ORDERED: fentaNYL (PF) 50 MCG/1 ML VIAL INTRATHECA ONE ×2 (16:18)
--- NOTE | 2022-11-24 18:21 | P.GSCN ---
History of Present Illness Consult date: 11/24/22 Reason for Consult: Urinary retention History of present illness: This is a 67-year-old male that underwent exploratory laparotomy with lysis of adhesion for small bowel obstruction. Attempt to place Espino catheter by nursing staff during surgery was unsuccessful. Urology is consulted for Espino catheter placement. Patient has history of robotic prostatectomy back in 2008 for prostate cancer this was done [facility]. No evidence of prostate cancer recurrence and per patient his PSA has been undetectable. He indicated since his surgery he's been having difficulty voiding which has progressively gotten worse. He has intermittent weak stream with straining. Also having urinary incontinence and uses approximately 3 pads per day. No histories of UTIs or previous urinary retention. Has not had an evaluation by urology for his urinary symptoms. Following his surgery he's been unable to void, having suprapubic pressure. He does have an epidural in place Review of Systems - Constitutional Denies chills, Denies fever - EENT Ears, nose, mouth and throat: Denies dysphagia - Cardiovascular Denies chest pain, Denies shortness of breath - Respiratory Denies cough, Denies 7 - Gastrointestinal Reports abdominal pain - Genitourinary Reports urinary retention, Denies dysuria, Denies flank pain, Denies hematuria - Integumentary Denies rash, Denies unusual bruising - Neurological Denies headaches, Denies syncope Past Medical History Past Medical History: Hypertension, Prostate Disorder Additional Past Medical History / Comment(s): Bowel obstruction, prostate CA History of Any Multi-Drug Resistant Organisms: None Reported Past Surgical History: Prostate Surgery Additional Past Surgical History / Comment(s): vasectomy Past Anesthesia/Blood Transfusion Reactions: No Reported Reaction Past Psychological History: No Psychological Hx Reported Smoking Status: Never smoker Past Alcohol Use History: Occasional Past Drug Use History: None Reported - Past Family History Mother Family Medical History: Hypertension Medications and Allergies Home Medications Medication Instructions Recorded Confirmed Type Cholecalciferol (Vitamin D3) 250 mcg PO DAILY 05/04/22 11/23/22 History [Vitamin D3 (125 MCG = 5,000 IU)] Multivitamins, Thera [Multivitamin 1 tab PO DAILY 05/04/22 11/23/22 History (formulary)] [place]-3/Dha/Epa/Fish Oil [Fish Oil 1 cap PO DAILY 05/04/22 11/23/22 History 1,000 mg Softgel] Zinc 25 mg PO DAILY 05/04/22 11/23/22 History lisinopriL [Prinivil] 10 mg PO DAILY 05/04/22 11/23/22 History tadalafiL [Cialis] 5 mg PO DAILY 05/04/22 11/23/22 History Ascorbic Acid [Vitamin C] 1,000 mg PO DAILY 11/23/22 11/23/22 History Quercetin 500mg Tab 500 mg PO DAILY 11/23/22 11/23/22 History Allergies Allergy/AdvReac Type Severity Reaction Status Date / Time Penicillins Allergy Rash/Hives Verified 11/23/22 11:55 Surgical - Exam Vital Signs Temp Pulse Resp BP Pulse Ox 98.6 F 63 20 144/78 97 11/23/22 08:45 11/23/22 08:45 11/23/22 08:45 11/23/22 08:45 11/23/22 08:45 - General no distress, moderate pain - Eyes normal ocular movement, no pale - ENT normal nares, normal mucosa - Respiratory normal expansion, normal respiratory effort - Abdomen Abdomen: soft, no distended - Genitourinary normal penis with no external lesions - Psychiatric oriented to time, oriented to person, oriented to place Results - Labs 11/24/22 09:33 11/24/22 09:33 Abnormal Lab Results - Last 24 Hours (Table) 11/24/22 Range/Units 09:33 Glucose 107 H (74-99) mg/dL Calcium 8.2 L (8.4-10.2) mg/dL Diabetes panel 11/24/22 Range/Units 09:33 Sodium 137 (137-145) mmol/L Potassium 4.4 (3.5-5.1) mmol/L Chloride 106 (98-107) mmol/L Carbon Dioxide 28 (22-30) mmol/L BUN 15 (9-20) mg/dL Creatinine 0.70 (0.66-1.25) mg/dL Glucose 107 H (74-99) mg/dL Calcium 8.2 L (8.4-10.2) mg/dL Calcium panel 11/24/22 Range/Units 09:33 Calcium 8.2 L (8.4-10.2) mg/dL Pituitary panel 11/24/22 Range/Units 09:33 Sodium 137 (137-145) mmol/L Potassium 4.4 (3.5-5.1) mmol/L Chloride 106 (98-107) mmol/L Carbon Dioxide 28 (22-30) mmol/L BUN 15 (9-20) mg/dL Creatinine 0.70 (0.66-1.25) mg/dL Glucose 107 H (74-99) mg/dL Calcium 8.2 L (8.4-10.2) mg/dL Adrenal panel 11/24/22 Range/Units 09:33 Sodium 137 (137-145) mmol/L Potassium 4.4 (3.5-5.1) mmol/L Chloride 106 (98-107) mmol/L Carbon Dioxide 28 (22-30) mmol/L BUN 15 (9-20) mg/dL Creatinine 0.70 (0.66-1.25) mg/dL Glucose 107 H (74-99) mg/dL Calcium 8.2 L (8.4-10.2) mg/dL Assessment and Plan Assessment: 67-year-old male with retention post Ex-Lap and Lysis of adhesion. History of prostatectomy in 2008, having difficulty voiding and urinary incontinence postsurgery, symptoms worrisome for a bladder neck contracture. Attempted to p lace a Espino catheter by nursing staff was unsuccessful -12-Russian Espino catheter was placed with return of clear urine -Keep Espino catheter in place until patient is ambulatory and close to discharge -Advised we'll need outpatient follow-up with urology to evaluate his bladder neck Contracture and urinary incontinence further Time with Patient: Greater than 30
--- NOTE | 2022-11-24 18:22 | P.PCN ---
Date of Procedure: 11/24/22 Preoperative Diagnosis: Bladder neck contracture Postoperative Diagnosis: Bladder neck contracture Procedure(s) Performed: Espino catheter placement Description of Procedure: Patient penis was prepped sterilely, was able to place a 12-[place] Espino sillicone catheter, was able to navigate the catheter past the bladder neck contracture into the bladder. With return of clear urine. Patient tolerated the procedure well
--- NOTE | 2022-11-24 21:01 | P.CONS ---
History of Present Illness - Reason for Consult Consult date: 11/24/22 Medical management Requesting physician: Theron Li - Chief Complaint Abdominal pain - History of Present Illness This is a pleasant 67-year-old patient follows Dr. Garay. Chronic stable medical conditions include hypertension, does take Cialis,. Yesterday afternoon patient started developing cramping in the abdomen. Followed by nausea. No fever no chills. Had a bowel movement before coming to the hospital. Started having significant abdominal pain. Computed tomography scan in the ER didn't show suspicion for possible/complete small bowel obstruction. With a transition point. Suspicion for adhesions. NG tube was placed. This morning still having some abdominal pain to better. After pain medications. at the bedside. No fever no chills. No cardiac history. Dr. Li is planning to take the patient to THIS afternoon. Review of systems: GEN.: Tired EYES: None HEENT: NG tube NECK: None RESPIRATORY: None CARDIOVASCULAR: None GASTROINTESTINAL: As above GENITOURINARY: None MUSCULOSKELETAL: None LYMPHATICS: None HEMATOLOGICAL: None PSYCHIATRY: None NEUROLOGICAL: None Past medical history to include: Hypertension, prostate cancer, followed by surgery, prior bowel obstruction not requiring surgery 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 Physical examination: VITAL SIGNS: 97, 83, 18, 1 5793, 93% room air GENERAL: BMI 23.5, sitting up in bed. EYES: Pupils equal. Conjunctiva normal. HEENT: External appearance of nose and ears normal, oral cavity grossly normal. NG tube to suction NECK: JVD not raised; masses not palpable. HEART: First and second heart sounds are normal; no edema. LUNGS: Respiratory rate normal; clear to auscultation. ABDOMEN: Soft, tender, no guarding rigidity, liver spleen not palpable, no masses palpable. PSYCH: Alert and oriented x3; mood and affect normal. MUSCULOSKELETAL:No Clubbing/cyanosis;muscles-grossly intact NEUROLOGICAL: Cranial nerves grossly intact; no facial asymmetry, power and sensation grossly intact. LYMPHATICS: No lymph nodes palpable in the axilla and neck INVESTIGATIONS, reviewed in the clinical context: White count 6.8 hemoglobin 13.3 platelets 195 potassium 4.4 creatinine 0.7 Abdominal x-ray film personally reviewed by me: Multiple loops of small bowel dilated with air-fluid levels. Gases stool present in the colon. CT abdomen and pelvis: Suspicion possible/early complete small bowel obstruction. With the right lower quadrant transition suspected. Assessment and plan: -Small bowel obstruction with suspicion of right lower quadrant transition point. NG tube overnight. Slight relief. Dr. Li started to the patient to or today. Suspicion for adhesions. -Essential hypertension Catapres patch 0.1. -Full code IV fluids. Nothing by mouth. NG tube. Plan to go to the OR later this afternoon.. Medically stable to proceed with the same. Care was discussed with the patient and at the bedside. Thank you Dr. Li Past Medical History Past Medical History: Hypertension, Prostate Disorder Additional Past Medical History / Comment(s): Bowel obstruction, prostate CA History of Any Multi-Drug Resistant Organisms: None Reported Past Surgical History: Prostate Surgery Additional Past Surgical History / Comment(s): vasectomy Past Anesthesia/Blood Transfusion Reactions: No Reported Reaction Past Psychological History: No Psychological Hx Reported Smoking Status: Never smoker Past Alcohol Use History: Occasional Past Drug Use History: None Reported - Past Family History Mother Family Medical History: Hypertension Medications and Allergies Home Medications Medication Instructions Recorded Confirmed Type Cholecalciferol (Vitamin D3) 250 mcg PO DAILY 05/04/22 11/23/22 History [Vitamin D3 (125 MCG = 5,000 IU)] Multivitamins, Thera [Multivitamin 1 tab PO DAILY 05/04/22 11/23/22 History (formulary)] [place]-3/Dha/Epa/Fish Oil [Fish Oil 1 cap PO DAILY 05/04/22 11/23/22 History 1,000 mg Softgel] Zinc 25 mg PO DAILY 05/04/22 11/23/22 History lisinopriL [Prinivil] 10 mg PO DAILY 05/04/22 11/23/22 History tadalafiL [Cialis] 5 mg PO DAILY 05/04/22 11/23/22 History Ascorbic Acid [Vitamin C] 1,000 mg PO DAILY 11/23/22 11/23/22 History Quercetin 500mg Tab 500 mg PO DAILY 11/23/22 11/23/22 History Allergies Allergy/AdvReac Type Severity Reaction Status Date / Time Penicillins Allergy Rash/Hives Verified 11/23/22 11:55 Physical Exam Vitals: Vital Signs Temp Pulse Pulse Resp BP BP BP 11/24/22 07:32 98.7 F 77 16 144/71 11/24/22 01:23 98.4 F 86 14 133/76 11/23/22 20:00 16 11/23/22 19:10 98.6 F 71 15 164/79 11/23/22 15:46 98.5 F 78 18 174/84 158/93 11/23/22 15:07 87 16 148/90 Pulse Ox 11/24/22 07:32 96 11/24/22 01:23 95 11/23/22 20:00 11/23/22 19:10 95 11/23/22 15:46 96 11/23/22 15:07 96 Intake and Output 11/23/22 11/24/22 11/24/22 22:59 06:59 14:59 Output Total 350 Balance -350 Output: Gastric Drainage 350 Other: # Voids 1 Weight 63.957 kg Results CBC & Chem 7: 11/24/22 09:33 11/24/22 09:33 Labs: Abnormal Lab Results - Last 24 Hours (Table) 11/23/22 11/23/22 Range/Units 11:04 11:04 WBC 10.9 H (3.8-10.6) k/uL Neutrophils # 9.4 H (1.3-7.7) k/uL Lymphocytes # 0.6 L (1.0-4.8) k/uL Glucose 116 H (74-99) mg/dL
--- NOTE | 2022-11-25 06:56 | P.PN ---
Progress Note - Text 11/25/22 622am 67-year-old male status post lysis of adhesion by Dr. Li. Patient has an epidural catheter was solution running at i 7 mL an hour with a VAS of 3. No motor or sensory deficit noted. Plan to continue epidural infusion and the patient was encouraged to ambulate
[2022-11-25 08:56] LABS: Basophils % (A) 0 %; Eosinophils % (A) 0 %; HCT 41.4 % (39.0-53.0); HGB 13.3 gm/dL (13.0-17.5); Lymphocytes # (A) 1.1 k/uL (1.0-4.8); Lymphocytes % (A) 15 %; MCH 28.6 pg (25.0-35.0); MCHC 32.1 g/dL (31.0-37.0); MCV 89.1 fL (80.0-100.0); Mean Platelet Volume 8.1; Monocytes # (A) 0.7 k/uL (0-1.0); Monocytes % (A) 10 %; Neutrophils # (A) 5.2 k/uL (1.3-7.7); Neutrophils % (A) 70 %; Platelet Count 174 k/uL (150-450); RBC 4.64 m/uL (4.30-5.90); WBC 7.3 k/uL (3.8-10.6)
[2022-11-25] MEDS: SODIUM CHLORIDE 0.9% 1,000 ML IV SCH ×2 (09:15→16:41)
[2022-11-25 09:38] LABS: African American GFR (CKD) >90 (>60 ml/min/1.73 sqM); Anion Gap 3 mmol/L; Blood Urea Nitrogen 14 mg/dL (9-20); Calcium 7.8 mg/dL (8.4-10.2); Carbon Dioxide 27 mmol/L (22-30); Chloride 104 mmol/L (98-107); Glucose 98 mg/dL (74-99); Non-African American GFR(CKD) >90 (>60 ml/min/1.73 sqM); Potassium 4.4 mmol/L (3.5-5.1); Sodium 134 mmol/L (137-145)
--- NOTE | 2022-11-25 09:42 | P.PN ---
Subjective Progress Note Date: 11/25/22 The patient is a 67-year-old male with a past medical history significant for hypertension, bowel obstruction, and prostate cancer. The patient had a robotic prostatectomy in 2008 at [facility]. No evidence of prostate cancer recurrence and per patient his PSA has been undetectable. Since the prostatectomy he and has had difficulty voiding and urinary incontinence which has progressively gotten worse. No history of UTIs or previous urinary retention. His symptoms are worrisome for a bladder neck contracture. He underwent a exploratory laparotomy with lysis of adhesions with on 11/24/22. The patient does have an epidural for pain management. A Espino catheter was unable to be placed in the operating room. Postoperatively the patient was unable to void and had suprapubic pressure. Urology was consulted for a Espino catheter placement. Dr. Su was able to insert a 12-Romanian Espino catheter with return of clear urine. Espino is draining overnight without any issues Objective - Vital Signs Vital signs: Vital Signs Temp 99.3 F 11/25/22 07:15 Pulse 90 11/25/22 07:15 Resp 17 11/25/22 07:15 BP 160/83 11/25/22 07:15 Pulse Ox 97 11/25/22 07:15 FiO2 Intake & Output 11/24/22 11/25/22 11/25/22 18:59 06:59 18:59 Intake Total 1662 Output Total 25 1600 Balance 1637 -1600 Intake: IV 1662 Output: Urine 1600 Estimated Blood Loss 25 Other: Voiding Method Indwelling Catheter - Exam - General no distress, moderate pain - Eyes normal ocular movement, no pale - ENT normal nares, normal mucosa - Respiratory normal expansion, normal respiratory effort - Abdomen Abdomen: soft, no distended - Genitourinary normal penis with no external lesions - Psychiatric oriented to time, oriented to person, oriented to place - Labs CBC & Chem 7: 11/25/22 08:38 11/25/22 08:38 Labs: Abnormal Lab Results - Last 24 Hours (Table) 11/24/22 Range/Units 09:33 Glucose 107 H (74-99) mg/dL Calcium 8.2 L (8.4-10.2) mg/dL Assessment and Plan Assessment: The patient is resting in bed this morning. He states he has not been up ambulating yet. He still has an epidural in place for pain management. His Espino catheter is draining clear yellow urine. The patient states his suprapubic pressure is much better. Plan: - Keep Espino catheter in place until patient is ambulatory and his epidural has been discontinued - Discontinue Espino catheter for voiding trial before discharge - Follow up with urology as outpatient to evaluate his bladder neck contracture and urinary incontinence further Impression and plan of care have been directed as dictated by the signing physician. Anum Benitez nurse practitioner acting as scribe for signing physician. Anum Benitez [facility] [id number] Email: [email or web address] I personally performed and participated in the history, physical, the decision making, I agree with the assessment and plan of STEM FRAZER
[2022-11-25] MEDS: HEPARIN SODIUM,PORCINE/PF 5,000 UNIT/0.5 ML SYRINGE SQ SCH ×2 (10:41→21:01)
--- NOTE | 2022-11-25 15:01 | P.PN ---
Subjective Progress Note Date: 11/25/22 CHIEF COMPLAINT: Small bowel obstruction HISTORY OF PRESENT ILLNESS: Patient is postop day #1 exploratory laparotomy with lysis of adhesion and incidental appendectomy for small bowel obstruction secondary to adhesions. Patient has epidural for pain. He reports his pain is controlled. He denies any nausea or vomiting. Denies any flatus. He did have a low-grade temperature 100.3. He did have some tachycardia at that time. Heart rate has improved 90. Urine output is adequate. He had difficult Espino catheter insertion and therefore urology was consulted to place Espino catheter. Currently afebrile. BP elevated. WBC 7.3 Hgb 13.3 platelets 174 sodium 134 potassium 4.4 creatinine 0.6 Patient seen and examined with Dr. hearn PHYSICAL EXAM: VITAL SIGNS: Reviewed. GENERAL: Well-developed in no acute distress. HEENT: No sclera icterus. Extraocular movements grossly intact. Moist buccal mucosa. Head is atraumatic, normocephalic. ABDOMEN: Mildly distended. Incisional dressing clean dry and intact NEUROLOGIC: Alert and oriented. Cranial nerves II through XII grossly intact. ASSESSMENT: 1. Small bowel obstruction secondary to adhesions status post exploratory laparotomy with lysis of adhesions and incidental appendectomy PLAN: -Continue epidural for pain control -Continue Espino catheter -IV fluids increased to 125 mL per hour -Encouraged patient to use incentive spirometer -Medicine to manage blood pressure -Encouraged patient to increase activity level -Keep patient nothing by mouth until bowel activity -DVT prophylaxis subcu heparin and GI prophylaxis Physician Drone Software Development Engineer note has been reviewed by physician. Signing provider agrees with the documented findings, assessment, and plan of care. Objective - Vital Signs Vital signs: Vital Signs Temp 99.1 F 11/25/22 11:53 Pulse 89 11/25/22 11:53 Resp 17 11/25/22 11:53 BP 171/91 11/25/22 11:53 Pulse Ox 97 11/25/22 11:53 FiO2 Intake & Output 11/24/22 11/25/22 11/25/22 18:59 06:59 18:59 Intake Total 1662 Output Total 25 1600 Balance 1637 -1600 Intake: IV 1662 Output: Urine 1600 Estimated Blood Loss 25 Other: Voiding Method Indwelling Catheter Indwelling Catheter - Labs CBC & Chem 7: 11/25/22 08:38 11/25/22 08:38 Labs: Abnormal Lab Results - Last 24 Hours (Table) 11/25/22 Range/Units 08:38 Sodium 134 L (137-145) mmol/L Calcium 7.8 L (8.4-10.2) mg/dL
[2022-11-25] MEDS ORDERED: cloNIDine 0.1 MG/24HR PATCH TRANSDERM SCH (16:00)
[2022-11-25] MEDS: FAMOTIDINE 20 MG/2 ML VIAL IV SCH (16:38)
[2022-11-25] MEDS ORDERED: ACETAMINOPHEN TAB 325 MG TAB PO PRN (20:03)
--- NOTE | 2022-11-25 20:26 | XR ---
EXAMINATION TYPE: XR chest 1V DATE OF EXAM: 11/25/2022 CLINICAL HISTORY: Fever. TECHNIQUE: Single AP portable frontal upright view of the chest is obtained. COMPARISON: None FINDINGS: There is low lung volumes with 3.1 cm round mass projecting over the left upper lung. The cardiac silhouette size is within normal limits. The osseous structures are intact. IMPRESSION: As above. CT follow-up advised to further evaluate.
--- NOTE | 2022-11-25 20:26 | P.PN ---
Progress Note - Text Progress Note Date: 11/25/22 - Chief Complaint Abdominal pain Hospital course: This is a pleasant 67-year-old patient follows Dr. Garay. Chronic stable medical conditions include hypertension, does take Cialis,. Yesterday afternoon patient started developing cramping in the abdomen. Followed by nausea. No fever no chills. Had a bowel movement before coming to the hospital. Started having significant abdominal pain. Computed tomography scan in the ER didn't show suspicion for possible/complete small bowel obstruction. With a transition point. Suspicion for adhesions. NG tube was placed. This morning still having some abdominal pain to better. After pain m edications. at the bedside. No fever no chills. No cardiac history. Dr. Li is planning to take the patient to THIS afternoon. November 25: Patient underwent lysis of adhesions yesterday. Has abdominal binder. Dr. morris from urology had to place a 12-American Espino catheter. As patient not able to urinate. Patient has an epidural for pain control. No flatus. Discussed with patient and at the at bedside Late in the evening nurse called me that patient's febrile 101. Given the catheterization empirically starting the patient on IV Levaquin. Blood cultures chest x-ray UA and culture have been ordered. Active Medications Acetaminophen (Acetaminophen Tab 325 Mg Tab) 650 mg PO Q6HR PRN PRN Reason: Fever and/ or Pain Clonidine HCl (Clonidine 0.1 Mg/24hr Patch) 1 patch TRANSDERM Q7D [facility] Last Admin: 11/25/22 16:38 Dose: 1 patch Famotidine (Famotidine 20 Mg/2 Ml Vial) 20 mg IV DAILY [facility] Last Admin: 11/25/22 16:38 Dose: 20 mg Heparin Sodium (Porcine) (Heparin Sodium,Porcine/Pf 5,000 Unit/0.5 Ml Syringe) 5,000 unit SQ Q12HR [facility] Last Admin: 11/25/22 10:41 Dose: 5,000 unit Hydromorphone HCl (Hydromorphone 1 Mg/Ml 1 Ml Syringe) 1 mg IVP Q3HR PRN PRN Reason: Pain Sodium Chloride (Saline 0.9%) 1,000 mls @ 125 mls/hr IV .Q8H [facility] Last Admin: 11/25/22 16:41 Dose: 125 mls/hr Ropivacaine 250 mg/Hydromorphone HCl 5 mg/ Sodium Chloride 250 mls @ 0 mls/hr EPIDURAL .Q0M PRN; Protocol PRN Reason: Pain Control Last Admin: 11/24/22 17:13 Dose: 12 mls Levofloxacin 750 mg/ IV (Solution) 150 mls @ 100 mls/hr IVPB Q24H [facility]; Protocol Naloxone HCl (Naloxone 0.4 Mg/Ml 1 Ml Vial) 0.2 mg IV Q2M PRN PRN Reason: Opioid Reversal Ondansetron HCl (Ondansetron 4 Mg/2 Ml Vial) 4 mg IVP Q8HR PRN PRN Reason: Nausea And Vomiting Last Admin: 11/23/22 16:05 Dose: 4 mg Triamcinolone Acetonide (Triamcinolone Acet 0.1% Oral Paste 5 Gm Tube) 1 applic MUCOUS MEM PC-TID [facility] Past medical history to include: Hypertension, prostate cancer, followed by surgery, prior bowel obstruction not requiring surgery 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 Physical examination: VITAL SIGNS: 100.3, 121, 15, 144/78, 94% on 2 L earlier GENERAL: Sitting up in bed EYES: Pupils equal. Conjunctiva normal. HEENT: External appearance of nose and ears normal, oral cavity grossly normal. NG tube to suction NECK: JVD not raised; masses not palpable. HEART: First and second heart sounds are normal; no edema. LUNGS: Respiratory rate normal; clear to auscultation. ABDOMEN: Soft, tender, binder in place. Espino catheter. Urine clear. PSYCH: Alert and oriented x3; mood and affect normal. INVESTIGATIONS, reviewed in the clinical context: November 25: White count 7.3 mm globin 13.3 platelets 134 potassium 4.4 creatinine 0.69 White count 6.8 hemoglobin 13.3 platelets 195 potassium 4.4 creatinine 0.7 Abdominal x-ray film personally reviewed by me: Multiple loops of small bowel dilated with air-fluid levels. Gases stool present in the colon. CT abdomen and pelvis: Suspicion possible/early complete small bowel obstruction. With the right lower quadrant transition suspected. Assessment and plan: -Small bowel obstruction with lysis of adhesions on November [address] iL Remains nothing by mouth. IV fluids -Bladder outflow obstruction 12-American Espino catheter placed by Dr. morris -Postoperative fever. 101.1: New Start IV Levaquin. Blood culture. Check sticks rate, UA with culture done. -Essential hypertension Catapres patch 0.1. -Full code IV fluids. Panculture. IV Levaquin. Thank you Dr. Li
[2022-11-25] MEDS: LEVOFLOXACIN 750MG-D5W PMX 750 MG in DEXTROSE/WATER 1 150ML.BAG IVPB SCH (21:00)
[2022-11-25] MEDS: TRIAMCINOLONE ACET 0.1% ORAL PASTE 5 GM TUBE MUCOUS MEM SCH (21:00)
[2022-11-25 21:05] LABS: Appearance,Urine Clear (Clear); Bilirubin,Urine Negative (Negative); Blood,Urine Negative (Negative); Color,Urine Light Yellow; Glucose,Urine (UA) Negative (Negative); Ketones,Urine 2+ (Negative); Leukocyte Esterase,Urine Negative (Negative); Nitrite,Urine Negative (Negative); Protein,Urine Negative (Negative); Specific Gravity,Urine 1.013 (1.001-1.035); Urobilinogen,Urine <2.0 mg/dL (<2.0)
[2022-11-25] MEDS: ROPIVACAINE 250 MG, HYDROMORPHONE (PF) 5 MG in SODIUM CHLORIDE 0.9% 200 ML EPIDURAL PRN (23:38)
[2022-11-26] MEDS: SODIUM CHLORIDE 0.9% 1,000 ML IV SCH ×4 (02:13→22:04)
--- NOTE | 2022-11-26 07:40 | P.PN ---
Progress Note - Text Progress Note Date: 11/26/22 Patient doing well w/o complaints. Ambulated briefly yesterday. Pain 6/10 and worse with movement. Pain mostly in the upper abdomen. Epidural @ 7 ml/hr. Denies headache or backache. Currently on acetaminophen and hydromorphone for breakthrough. Back - epidural site clean and dry A/P POD # 3 s/p ex lap. Epidural day # 2 (replaced) - may d/c epidural or keep another day - if epidural d/c, consider acetaminophen and ketorolac around the clock for 1-2 days - continue breakthrough hydromorphone
[2022-11-26 08:28] LABS: African American GFR (CKD) >90 (>60 ml/min/1.73 sqM); Anion Gap 4 mmol/L; Blood Urea Nitrogen 14 mg/dL (9-20); Calcium 7.8 mg/dL (8.4-10.2); Carbon Dioxide 28 mmol/L (22-30); Chloride 100 mmol/L (98-107); Glucose 76 mg/dL (74-99); Non-African American GFR(CKD) >90 (>60 ml/min/1.73 sqM); Potassium 4.1 mmol/L (3.5-5.1); Sodium 132 mmol/L (137-145)
[2022-11-26 08:38] LABS: Basophils % (A) 0 %; Eosinophils % (A) 1 %; HCT 38.7 % (39.0-53.0); HGB 12.6 gm/dL (13.0-17.5); Lymphocytes % (A) 17 %; MCH 28.8 pg (25.0-35.0); MCHC 32.7 g/dL (31.0-37.0); Mean Platelet Volume 8.4; Monocytes # (A) 0.8 k/uL (0-1.0); Monocytes % (A) 14 %; Neutrophils % (A) 66 %; Platelet Count 148 k/uL (150-450); RDW 12.7 % (11.5-15.5); WBC 6.1 k/uL (3.8-10.6)
[2022-11-26] MEDS: FAMOTIDINE 20 MG/2 ML VIAL IV SCH (09:34)
[2022-11-26] MEDS: HEPARIN SODIUM,PORCINE/PF 5,000 UNIT/0.5 ML SYRINGE SQ SCH ×2 (09:36→22:04)
--- NOTE | 2022-11-26 12:08 | P.PN ---
Subjective Progress Note Date: 11/26/22 CHIEF COMPLAINT: Small bowel obstruction HISTORY OF PRESENT ILLNESS: Patient is postop day #2 exploratory laparotomy with lysis of adhesion and incidental appendectomy for small bowel obstruction secondary to adhesions. Patient has epidural for pain. He reports his pain is controlled. He did have a fever of 101.1 last night and a low-grade temp of 100.5 this morning with mild tachycardia. Patient denies any nausea vomiting. Denies any bowel activity. WBC is 6.1 Hgb is 12.6 platelets 148 sodium is 132 potassium is 4.1 creatinine 0.78 Patient seen and examined with Dr. hearn PHYSICAL EXAM: VITAL SIGNS: Reviewed. GENERAL: Well-developed in no acute distress. HEENT: No sclera icterus. Extraocular movements grossly intact. Moist buccal mucosa. Head is atraumatic, normocephalic. ABDOMEN: Mildly distended. Incision clean dry and intact NEUROLOGIC: Alert and oriented. Cranial nerves II through XII grossly intact. ASSESSMENT: 1. Small bowel obstruction secondary to adhesions status post exploratory laparotomy with lysis of adhesions and incidental appendectomy 2. Fever likely due to atelectasis PLAN: -Keep patient nothing by mouth except for ice chips and popsicles -Continue epidural for pain control -Continue Espino catheter -Abdominal dressing changed to Optifoam silver -Continue IV fluids -Encouraged patient to use incentive spirometer -Encouraged patient to increase activity level -DVT prophylaxis subcu heparin and GI prophylaxis Physician Wet Milling Wheel Operator note has been reviewed by physician. Signing provider agrees with the documented findings, assessment, and plan of care. Objective - Vital Signs Vital signs: Vital Signs Temp 98.9 F 11/26/22 07:34 Pulse 94 11/26/22 07:34 Resp 17 11/26/22 07:34 BP 160/88 11/26/22 07:34 Pulse Ox 97 11/26/22 07:34 FiO2 Intake & Output 11/25/22 11/26/22 11/26/22 18:59 06:59 18:59 Output Total 800 1150 2500 Balance -800 -1150 -2500 Output: Urine 800 1150 2500 Uretheral (Espino) 2500 Stool 0 Emesis 0 Other: Voiding Method Indwelling Catheter Indwelling Catheter Indwelling Catheter # Bowel Movements 0 # Emeses 0 - Labs CBC & Chem 7: 11/26/22 06:40 11/26/22 06:40 Labs: Abnormal Lab Results - Last 24 Hours (Table) 11/25/22 11/26/22 11/26/22 Range/Units 20:21 06:40 06:40 Hgb 12.6 L (13.0-17.5) gm/dL Hct 38.7 L (39.0-53.0) % Plt Count 148 L (150-450) k/uL Sodium 132 L (137-145) mmol/L Calcium 7.8 L (8.4-10.2) mg/dL Urine Ketones 2+ H (Negative)
--- NOTE | 2022-11-26 13:14 | P.CNPUL ---
History of Present Illness Consult date: 11/26/22 Requesting physician: Manfred Beaulieu (review of) Reason for consult: lung mass Chief complaint: abdominal pain History of present illness: I'm seeing this patient today 11/26/2022 in consultation for what was believed to be a new left upper lobe pulmonary mass. Upon further examination of the [facility] x-ray from 11/25/2022, this is not a mass, but external Artifact. Patient has a pain pump with ropivacaine infusing through a catheter. This catheter was draped over the patient's left chest, the suspected artifact is shaped the same as the suspected mass found on x-ray. The patient has a pertinent medical history of being a lifelong nonsmoker, hypertension, small bowel obstruction status post repair, and prostate CA. The patient was originally admitted on 11/23/22 with the chief concern of abdominal pain. Patient had an evaluation which involved an abdominal CT, which showed suspicious findings of a partial or early complete small bowel obstruction in the right lower quadrant, likely henry ggesting adhesions. The patient underwent an exploratory laparotomy on 11/24/[address] Li, and had a lysis of adhesions with appendectomy. the patient is currently sitting up,on 2 L nasal cannula, in no acute distress. patient was mildly febrile overnight with a T-max of 101.1F. patient's CBC and BMP were stable from today.patient is receiving empiric Levaquin. incentive spirometer is at bedside. patient is also receiving DVT prophylaxis in the form of subq heparin and GI prophylaxis with Pepcid. vital signs are stable. Review of Systems REVIEW OF SYSTEMS: CONSTITUTIONAL: Denies any recent significant weight loss or weight gain. EYES: Denies change in vision. EARS, NOSE, MOUTH, THROAT: Denies headaches, denies sore throat. CARDIOVASCULAR: Denies chest pain, palpitations or syncopal episodes. RESPIRATORY: Denies shortness of breath, cough, congestion or hemoptysis. GASTROINTESTINAL: Denies change in appetite. admits incisional abdominal pain with coughing and deep breathing and/or palpation. GENITOURINARY: Denies hematuria, denies infections. MUSKULOSKELETAL: Denies pain, denies swelling. INTEGUMENTARY: Denies rash, denies eczema. NEUROLOGICAL: Denies recent memory loss, no recent seizure activity. PSYCHIATRIC: Denies anxiety, denies depression. HEMATOLOGIC/LYMPHATIC: Denies anemia, denies enlarged lymph node Past Medical History Past Medical History: Hypertension, Prostate Disorder Additional Past Medical History / Comment(s): Bowel obstruction, prostate CA History of Any Multi-Drug Resistant Organisms: None Reported Past Surgical History: Prostate Surgery Additional Past Surgical History / Comment(s): vasectomy Past Anesthesia/Blood Transfusion Reactions: No Reported Reaction Past Psychological History: No Psychological Hx Reported Smoking Status: Never smoker Past Alcohol Use History: Occasional Past Drug Use History: None Reported - Past Family History Mother Family Medical History: Hypertension Medications and Allergies Home Medications Medication Instructions Recorded Confirmed Type Cholecalciferol (Vitamin D3) 250 mcg PO DAILY 05/04/22 11/23/22 History [Vitamin D3 (125 MCG = 5,000 IU)] Multivitamins, Thera [Multivitamin 1 tab PO DAILY 05/04/22 11/23/22 History (formulary)] Rayle-3/Dha/Epa/Fish Oil [Fish Oil 1 cap PO DAILY 05/04/22 11/23/22 History 1,000 mg Softgel] Zinc 25 mg PO DAILY 05/04/22 11/23/22 History lisinopriL [Prinivil] 10 mg PO DAILY 05/04/22 11/23/22 History tadalafiL [Cialis] 5 mg PO DAILY 05/04/22 11/23/22 History Ascorbic Acid [Vitamin C] 1,000 mg PO DAILY 11/23/22 11/23/22 History Quercetin 500mg Tab 500 mg PO DAILY 11/23/22 11/23/22 History Allergies Allergy/AdvReac Type Severity Reaction Status Date / Time Penicillins Allergy Rash/Hives Verified 11/23/22 11:55 Physical Exam Vitals: Vital Signs Temp Pulse Resp BP Pulse Ox 11/26/22 07:34 98.9 F 94 17 160/88 97 11/26/22 01:31 100.5 F H 109 H 14 157/88 93 L 11/25/22 23:52 98.5 F 11/25/22 20:00 15 11/25/22 18:59 101.1 F H 107 H 15 172/97 92 L Intake and Output 11/25/22 11/26/22 11/26/22 22:59 06:59 14:59 Output Total 800 1150 2500 Balance -800 -1150 -2500 Output: Urine 800 1150 2500 Uretheral (Espino) 2500 Stool 0 Emesis 0 Other: Voiding Method Indwelling Catheter Indwelling Catheter # Bowel Movements 0 # Emeses 0 GENERAL EXAM: Alert, 67-year-old male, comfortable in no apparent distress. HEAD: Normocephalic and atraumatic EYES: Normal reaction of pupils, equal size. NOSE: Clear with pink turbinates. THROAT: No erythema or exudates. NECK: No masses, no JVD. CHEST: No chest wall deformity. LUNGS: Equal air entry with no crackles, wheeze, rhonchi or dullness.on 2 L nasal cannula. No conversational dyspnea or accessory muscle use.. external IV catheter line draped over same anatomical location seen on the chest x-ray on 11/25/2022. CVS: S1 and S2 normal with no audible murmur, regular rhythm. ABDOMEN: No hepatosplenomegaly, active bowel sounds, no guarding or rigidity. incisional dressing is clean dry and intact SPINE: No scoliosis or deformity SKIN: No rashes CENTRAL NERVOUS SYSTEM: No focal deficits, tone is normal in all 4 extremities. EXTREMITIES: There is no peripheral edema, clubbing, or cyanosis. Peripheral pulses are intact. Results - Laboratory Findings CBC and BMP: 11/26/22 06:40 11/26/22 06:40 Abnormal lab findings: Abnormal Labs 11/23/22 11/23/22 11/23/22 08:50 11:04 11:04 WBC 10.9 H Hgb Hct Plt Count Neutrophils # 9.4 H Lymphocytes # 0.6 L Sodium Glucose 116 H Calcium Urine Protein Trace H Urine Ketones 11/24/22 11/25/22 11/25/22 09:33 08:38 20:21 WBC Hgb Hct Plt Count Neutrophils # Lymphocytes # Sodium 134 L Glucose 107 H Calcium 8.2 L 7.8 L Urine Protein Urine Ketones 2+ H 11/26/22 11/26/22 06:40 06:40 WBC Hgb 12.6 L Hct 38.7 L Plt Count 148 L Neutrophils # Lymphocytes # Sodium 132 L Glucose Calcium 7.8 L Urine Protein Urine Ketones - Diagnostic Findings Chest x-ray: image reviewed Assessment and Plan Assessment: small bowel obstruction status post lysis of adhesions on 11/24/2022. Patient also underwent an incidental appendectomy at this time. Suspected new pulmonary "mass". Was found to be external artifact related to a epidural IV line. IV line was in the same shape and anatomical location as suspected pulmonary "mass". hypertension History of prostate CA with prostatectomy plan Patient's suspected pulmonary mass was found to be external artifact as a result of a epidural IV line draped over the left chest. Continue incentive spirometer use No further pulmonary recommendations at this time. We will follow as needed. I have personally seen and examined the patient, performed the documentation and the assessment and plan as written. Number of minutes spent on the visit: 20. Time with Patient: Greater than 30
[2022-11-26] MEDS: TRIAMCINOLONE ACET 0.1% ORAL PASTE 5 GM TUBE MUCOUS MEM SCH ×3 (13:56→18:28)
[2022-11-26 14:34] VITALS: BMI 23.4
--- NOTE | 2022-11-26 16:05 | P.PN ---
Progress Note - Text Progress Note Date: 11/26/22 - Chief Complaint Abdominal pain Hospital course: This is a pleasant 67-year-old patient follows Dr. Garay. Chronic stable medical conditions include hypertension, does take Cialis,. Yesterday afternoon patient started developing cramping in the abdomen. Followed by nausea. No fever no chills. Had a bowel movement before coming to the hospital. Started having significant abdominal pain. Computed tomography scan in the ER didn't show suspicion for possible/complete small bowel obstruction. With a transition point. Suspicion for adhesions. NG tube was placed. This morning still having some abdominal pain to better. After pain m edications. at the bedside. No fever no chills. No cardiac history. Dr. Li is planning to take the patient to THIS afternoon. November 25: Patient underwent lysis of adhesions yesterday. Has abdominal binder. Dr. morris from urology had to place a 12-Venezuelan Espino catheter. As patient not able to urinate. Patient has an epidural for pain control. No flatus. Discussed with patient and at the at bedside Late in the evening nurse called me that patient's febrile 101. Given the catheterization empirically starting the patient on IV Levaquin. Blood cultures chest x-ray UA and culture have been ordered. April 26: Temperature 100.5 overnight. On IV Zosyn. IV fluids. Epidural. Remains nothing by mouth. Some abdominal distention. Using incentive spirometry. Chest x-ray showing 3.1 cm mass. Well-circumscribed. Pulmonary was consulted.-Rose[place] to be external artifact. UA unremarkable. No flatus. No respiratory symptoms. Active Medications Acetaminophen (Acetaminophen Tab 325 Mg Tab) 650 mg PO Q6HR PRN PRN Reason: Fever and/ or Pain Last Admin: 11/25/22 20:59 Dose: 650 mg Hydrocodone Bitart/Acetaminophen (Hydrocodone/Apap 5-325mg 1 Each Tab) 1 each PO Q4HR PRN PRN Reason: Pain Clonidine HCl (Clonidine 0.1 Mg/24hr Patch) 1 patch TRANSDERM Q7D [facility] Last Admin: 11/25/22 16:38 Dose: 1 patch Famotidine (Famotidine 20 Mg/2 Ml Vial) 20 mg IV DAILY [facility] Last Admin: 11/26/22 09:34 Dose: 20 mg Heparin Sodium (Porcine) (Heparin Sodium,Porcine/Pf 5,000 Unit/0.5 Ml Syringe) 5,000 unit SQ Q12HR [facility] Last Admin: 11/26/22 09:36 Dose: 5,000 unit Hydromorphone HCl (Hydromorphone 1 Mg/Ml 1 Ml Syringe) 1 mg IVP Q3HR PRN PRN Reason: Pain Sodium Chloride (Saline 0.9%) 1,000 mls @ 125 mls/hr IV .Q8H [facility] Last Admin: 11/26/22 09:30 Dose: 125 mls/hr Ropivacaine 250 mg/Hydromorphone HCl 5 mg/ Sodium Chloride 250 mls @ 0 mls/hr EPIDURAL .Q0M PRN; Protocol PRN Reason: Pain Control Last Admin: 11/25/22 23:38 Dose: 7 mls/hr Levofloxacin 750 mg/ IV (Solution) 150 mls @ 100 mls/hr IVPB Q24H [facility]; Protocol Last Admin: 11/25/22 21:00 Dose: 100 mls/hr Naloxone HCl (Naloxone 0.4 Mg/Ml 1 Ml Vial) 0.2 mg IV Q2M PRN PRN Reason: Opioid Reversal Ondansetron HCl (Ondansetron 4 Mg/2 Ml Vial) 4 mg IVP Q8HR PRN PRN Reason: Nausea And Vomiting Last Admin: 11/23/22 16:05 Dose: 4 mg Triamcinolone Acetonide (Triamcinolone Acet 0.1% Oral Paste 5 Gm Tube) 1 applic MUCOUS MEM PC-TID [facility] Last Admin: 11/26/22 15:39 Dose: 1 applic Past medical history to include: Hypertension, prostate cancer, followed by surgery, prior bowel obstruction not requiring surgery 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 Physical examination: VITAL SIGNS: T-max 100.5, 94, 17, 132/90, 95% room air GENERAL: Sitting up in bed EYES: Pupils equal. Conjunctiva normal. HEENT: External appearance of nose and ears normal, oral cavity grossly normal. NG tube to suction NECK: JVD not raised; masses not palpable. HEART: First and second heart sounds are normal; no edema. LUNGS: Respiratory rate normal; clear to auscultation. ABDOMEN: Soft, tender, binder in place. Espino catheter. Urine clear. PSYCH: Alert and oriented x3; mood and affect normal. INVESTIGATIONS, reviewed in the clinical context: November 26: White count 6.1 hemoglobin 12.6 sodium 132 potassium 4.1 creatinine 0.78 November 25: White count 7.3 mm globin 13.3 platelets 134 potassium 4.4 creatinine 0.69 White count 6.8 hemoglobin 13.3 platelets 195 potassium 4.4 creatinine 0.7 Abdominal x-ray film personally reviewed by me: Multiple loops of small bowel dilated with air-fluid levels. Gases stool present in the colon. CT abdomen and pelvis: Suspicion possible/early complete small bowel obstructi on. With the right lower quadrant transition suspected. Assessment and plan: -Small bowel obstruction with lysis of adhesions on November [address] Li Remains nothing by mouth. IV fluids -Bladder outflow obstruction 12-V[place]an Espino catheter placed by Dr. morris -Postoperative fever. IV Levaquin. Blood culture pending.. UA unremarkable. -Essential hypertension Catapres patch 0.1. -Full code IV fluids. Patient is also discussed with the patient.. IV Levaquin. Thank you Dr. Li
--- NOTE | 2022-11-26 19:08 | P.PN ---
Progress Note - Text Progress Note Date: 11/26/22 no acute overnight events, continues to have good urine output. No issues with the catheter clogging -Keep Espino catheter until patient is ambulatory, in close discharge -We will eventually need outpatient evaluation for his bladder neck contracture -Espino can be irrigated as needed
[2022-11-26] MEDS: LEVOFLOXACIN 750MG-D5W PMX 750 MG in DEXTROSE/WATER 1 150ML.BAG IVPB SCH (22:04)
[2022-11-27] MEDS: SODIUM CHLORIDE 0.9% 1,000 ML IV SCH ×2 (06:30→22:46)
[2022-11-27] MEDS ORDERED: HYDROcodone/APAP 5-325MG 1 EACH TAB PO PRN (08:00)
--- NOTE | 2022-11-27 08:40 | P.PN ---
Subjective Progress Note Date: 11/27/22 Principal diagnosis: Bowel obstruction Patient doing better today. He is now afebrile. He had flatus yesterday. Tolerating popsicles. No nausea or vomiting. Epidural and Espino catheter remain in place. Labs pending. Objective - Vital Signs Vital signs: Vital Signs Temp 98.4 F 11/27/22 07:29 Pulse 98 11/27/22 07:29 Resp 16 11/27/22 07:29 BP 155/82 11/27/22 07:29 Pulse Ox 97 11/27/22 08:02 FiO2 Intake & Output 11/26/22 11/27/22 11/27/22 18:59 06:59 18:59 Output Total 3200 400 Balance -3200 -400 Weight 63.957 kg Output: Urine 3200 400 Uretheral (Espino) 2500 Stool 0 Emesis 0 Other: Voiding Method Indwelling Catheter Indwelling Catheter # Bowel Movements 0 # Emeses 0 - Exam Abdomen: Soft, nondistended, dressing clean and dry, mild tenderness - Labs CBC & Chem 7: 11/26/22 06:40 11/26/22 06:40 Labs: Microbiology - Last 24 Hours (Table) 11/25/22 20:43 Blood Culture - Preliminary Blood No Growth after 24 hours 11/25/22 20:43 Blood Culture - Preliminary Blood No Growth after 24 hours Assessment and Plan (1) Small bowel obstruction Narrative/Plan: Patient doing better at this time. Begin clear liquids. Remove epidural. May remove Espino catheter from our standpoint. This will be reviewed with urology. Ambulate. Current Visit: Yes Status: Acute Code(s): K56.609 - UNSP INTESTNL OBST, UNSP TO PARTIAL VERSUS COMPLETE OBST SNOMED Code(s): 054381109
[2022-11-27 08:49] LABS: Basophils # (A) 0.01 X 10*3/uL (0.00-0.10); Basophils % (A) 0.2 %; Eosinophils # (A) 0.06 X 10*3/uL (0.04-0.35); Eosinophils % (A) 1.2 %; HCT 37.6 % (39.6-50.0); HGB 11.9 g/dL (13.0-17.0); Immature Grans, Automated 0.6 %; Lymphocytes # (A) 1.08 X 10*3/uL (0.90-5.00); Lymphocytes % (A) 21.9 %; MCH 28.3 pg (27.0-32.0); MCHC 31.6 g/dL (32.0-37.0); MCV 89.3 fL (80.0-97.0); Mean Platelet Volume 11.3 fL (9.5-12.2); Monocytes # (A) 0.73 X 10*3/uL (0.20-1.00); Monocytes % (A) 14.8 %; NRBC Per 100 WBC 0 /100 WBCS (0.0-0.0); Neutrophils # (A) 3.02 X 10*3/uL (1.80-7.70); Neutrophils % (A) 61.3 %; Platelet Count 176 X 10*3/uL (140-440); RBC 4.21 X 10*6/uL (4.40-5.60); RDW 12.6 % (11.5-14.5); WBC 4.93 X 10*3/uL (4.50-10.00)
[2022-11-27] MEDS: TRIAMCINOLONE ACET 0.1% ORAL PASTE 5 GM TUBE MUCOUS MEM SCH ×3 (09:01→18:23)
[2022-11-27] MEDS: FAMOTIDINE 20 MG/2 ML VIAL IV SCH (09:01)
[2022-11-27] MEDS: HEPARIN SODIUM,PORCINE/PF 5,000 UNIT/0.5 ML SYRINGE SQ SCH ×2 (09:02→22:46)
[2022-11-27 09:11] LABS: African American GFR (CKD) 113.2 (60.0-200.0); Anion Gap 10.8 mmol/L (10.00-18.00); BUN/Creat Ratio 18.14 Ratio (12.00-20.00); Blood Urea Nitrogen 12.7 mg/dL (9.0-27.0); Calcium 8.2 mg/dL (8.7-10.3); Carbon Dioxide 27.2 mmol/L (20.0-27.5); Non-African American GFR(CKD) 97.7 (60.0-200.0)
--- NOTE | 2022-11-27 10:38 | P.PN ---
Progress Note - Text Progress Note Date: 11/27/22 ([id number]) Anesthesia Postop day #3 Status post auditory laparotomy with epidural day #4 Patient seen and examined. Doing well without complaint. VAS 0 out of 10. No nausea vomiting or pruritus. Epidural is currently stopped. Objective: Vital signs reviewed Lungs: Good chest excursion Abdomen: Appears nondistended Other: Epidural Site Intact without induration. Dressing intact Neuro: No apparent motor block. Sensory within normal limits. Assessment: Status post exploratory laparotomy postop day #3 Plan: Continue current care with your medical management. Order written for epidural pull 6 hours after last subcu heparin. May resume subcu heparin immediately after
[2022-11-27] MEDS: HYDROmorphone 1 MG/ML 1 ML SYRINGE IVP PRN (16:43)
[2022-11-27] MEDS: LEVOFLOXACIN 750MG-D5W PMX 750 MG in DEXTROSE/WATER 1 150ML.BAG IVPB SCH (22:42)
[2022-11-28] MEDS: SODIUM CHLORIDE 0.9% 1,000 ML IV SCH ×3 (03:12→10:03)
--- NOTE | 2022-11-28 03:17 | PN ---
PROGRESS NOTE DATE OF SERVICE: 11/27/2022 SUBJECTIVE: This is a 67-year-old gentleman, who was admitted with small-bowel obstruction, lysis of adhesion. He is being closely monitored. Epidural has been removed. No chest pain. No palpitations. No fever. OBJECTIVE: VITAL SIGNS: Pulse 73, blood pressure ntd respirations 16. CHEST: Clear to auscultation. CARDIOVASCULAR: S1 and S2. ABDOMEN: Soft. Status post surgery. LABORATORY DATA: Hemoglobin 11.9. The rest of the labs are noted. ASSESSMENT: 1. Small bowel obstruction, status post lysis of adhesions. 2. Bladder outflow obstruction. 3. Possibility of fever. 4. Hypertension. 5. Multiple medications. RECOMMENDATIONS: Recommend to continue current management and treatment, closely follow with Surgery. Further recommendations to follow. See orders for details. MMODL / IJN: [id number] / MTDD
[2022-11-28] MEDS: HYDROmorphone 1 MG/ML 1 ML SYRINGE IVP PRN ×2 (04:28→13:05)
[2022-11-28] MEDS: HEPARIN SODIUM,PORCINE/PF 5,000 UNIT/0.5 ML SYRINGE SQ SCH ×2 (09:35→20:45)
[2022-11-28] MEDS: TRIAMCINOLONE ACET 0.1% ORAL PASTE 5 GM TUBE MUCOUS MEM SCH ×3 (09:35→17:05)
[2022-11-28] MEDS: FAMOTIDINE 20 MG/2 ML VIAL IV SCH (09:53)
--- NOTE | 2022-11-28 12:02 | P.PN ---
Subjective Progress Note Date: 11/28/22 Principal diagnosis: Bowel obstruction Patient doing better today. Espino catheter remains in place. Epidural was removed. Pain is controlled. Denies nausea or vomiting. Tolerating clears. He did have flatus. Objective - Vital Signs Vital signs: Vital Signs Temp 98.7 F 11/28/22 07:35 Pulse 75 11/28/22 07:35 Resp 18 11/28/22 07:35 BP 170/87 11/28/22 07:35 Pulse Ox 94 L 11/28/22 07:53 FiO2 21 11/28/22 07:53 Intake & Output 11/27/22 11/28/22 11/28/22 18:59 06:59 18:59 Output Total 1300 1100 700 Balance -1300 -1100 -700 Output: Urine 1300 1100 700 Stool 0 0 Other: Voiding Method Indwelling Catheter Indwelling Catheter Indwelling Catheter - Exam Abdomen: Soft, nondistended, incision clean and dry, mild tenderness - Labs CBC & Chem 7: 11/27/22 06:22 11/27/22 06:22 Labs: Microbiology - Last 24 Hours (Table) 11/25/22 20:43 Blood Culture - Preliminary Blood No Growth after 48 hours 11/25/22 20:43 Blood Culture - Preliminary Blood No Growth after 48 hours Assessment and Plan (1) Small bowel obstruction Narrative/Plan: Patient gradually improving. Will advance diet to full liquids. Ambulate. Anticipate removal of Espino catheter tomorrow if okay with urology. Possible discharge on Tuesday if doing well otherwise. Current Visit: Yes Status: Acute Code(s): K56.609 - UNSP INTESTNL OBST, UNSP TO PARTIAL VERSUS COMPLETE OBST SNOMED Code(s): 237147794
[2022-11-28] MEDS ORDERED: HYDROcodone/APAP 7.5-325MG 1 EACH TAB PO PRN (13:32)
[2022-11-28] MEDS: HYDROcodone/APAP 7.5-325MG 1 EACH TAB PO PRN ×2 (16:01→20:50)
[2022-11-28] MEDS: lisinopriL 10 MG TAB PO SCH (17:05)
[2022-11-28] MEDS: KETOROLAC 15 MG/ML 1 ML VIAL IVP SCH (17:55)
[2022-11-28] MEDS: LEVOFLOXACIN 750MG-D5W PMX 750 MG in DEXTROSE/WATER 1 150ML.BAG IVPB SCH (20:43)
[2022-11-29] MEDS: HYDROcodone/APAP 7.5-325MG 1 EACH TAB PO PRN ×2 (04:06→23:43)
[2022-11-29] MEDS: KETOROLAC 15 MG/ML 1 ML VIAL IVP SCH ×5 (06:04→23:40)
[2022-11-29] MEDS ORDERED: SODIUM CHLORIDE 0.9% 500 ML 500 ML IV ONE (06:40)
--- NOTE | 2022-11-29 07:37 | PN ---
PROGRESS NOTE DATE OF SERVICE: 11/28/2022 SUBJECTIVE: This is a 67-year-old gentleman, admitted after small-bowel obstruction, is being closely monitored. The patient's epidural catheter has been removed. No chest pain. No palpitations. No fever. OBJECTIVE: VITAL SIGNS: Pulse 74, blood pressure 174/87, respirations 18. CHEST: Clear to auscultation. CARDIOVASCULAR: S1 and S2. ABDOMEN: Soft, status post surgery. LABORATORY DATA: Reviewed. ASSESSMENT: 1. Acute small-bowel obstruction, status post lysis of adhesions. 2. Bladder outflow obstruction. 3. Postoperative fever. 4. Hypertension. 5. Multiple medications. RECOMMENDATIONS: Recommend to continue current management and treatment, otherwise, I would recommend resuming some of the home medications. See orders for details. Further recommendations to follow. MMODL / IJN: [id number] /
[2022-11-29] MEDS: TRIAMCINOLONE ACET 0.1% ORAL PASTE 5 GM TUBE MUCOUS MEM SCH ×3 (08:35→18:08)
[2022-11-29] MEDS: lisinopriL 10 MG TAB PO SCH (08:35)
[2022-11-29] MEDS: HEPARIN SODIUM,PORCINE/PF 5,000 UNIT/0.5 ML SYRINGE SQ SCH ×2 (08:35→20:06)
[2022-11-29] MEDS: FAMOTIDINE 20 MG/2 ML VIAL IV SCH (08:35)
--- NOTE | 2022-11-29 12:09 | P.PN ---
Subjective Progress Note Date: 11/29/22 CHIEF COMPLAINT: Small bowel obstruction HISTORY OF PRESENT ILLNESS: Patient is postop day #5 exploratory laparotomy with lysis of adhesion and incidental appendectomy for small bowel obstruction secondary to adhesions. Patient reports that his pain is better controlled today after the addition of Toradol and increased dosage of [place]. He denies any nausea or vomiting. He is having small amount of flatus. He is being followed by urology regarding the Espino catheter. The recommending Espino cathet er stays until patient is more ambulatory and closer to discharge. Afebrile. WBC 4.3 hemoglobin 11.9 on November 27 Patient seen and examined with Dr. hearn PHYSICAL EXAM: VITAL SIGNS: Reviewed. GENERAL: Well-developed in no acute distress. HEENT: No sclera icterus. Extraocular movements grossly intact. Moist buccal mucosa. Head is atraumatic, normocephalic. ABDOMEN: Soft. Mildly distended. Incisional dressing clean dry and intact NEUROLOGIC: Alert and oriented. Cranial nerves II through XII grossly intact. ASSESSMENT: 1. Small bowel obstruction secondary to adhesions status post exploratory laparotomy with lysis of adhesions and incidental appendectomy 2. Fever likely due to atelectasis PLAN: -Continue full liquid diet -Continue pain management -Continue Espino catheter per urology -Encouraged patient to use incentive spirometer -Encouraged patient to increase activity level -DVT prophylaxis subcu heparin and GI prophylaxis Physician Publicity Writer note has been reviewed by physician. Signing provider agrees with the documented findings, assessment, and plan of care. Objective - Vital Signs Vital signs: Vital Signs Temp 97.6 F 11/29/22 07:20 Pulse 62 11/29/22 07:20 Resp 18 11/29/22 07:20 BP 151/86 11/29/22 07:20 Pulse Ox 97 11/29/22 07:20 FiO2 21 11/28/22 07:53 Intake & Output 11/28/22 11/29/22 11/29/22 18:59 06:59 18:59 Intake Total 590 Output Total 700 200 Balance -700 390 Intake: Oral 590 Output: Urine 700 200 Other: Voiding Method Indwelling Catheter Indwelling Catheter Indwelling Catheter # Voids 4 - Labs CBC & Chem 7: 11/27/22 06:22 11/27/22 06:22 Labs: Microbiology - Last 24 Hours (Table) 11/25/22 20:43 Blood Culture - Preliminary Blood No Growth after 72 hours 11/25/22 20:43 Blood Culture - Preliminary Blood No Growth after 72 hours
--- NOTE | 2022-11-29 12:40 | P.PN ---
Progress Note - Text Progress Note Date: 11/29/22 The Espino catheter is draining clear yellow urine. 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 The catheter may be removed when no longer medically needed, and he will follow up with Dr. Su as an outpatient. Please notify us if we can be of further assistance.
[2022-11-29 13:02] VITALS: RESP 16
[2022-11-29] MEDS ORDERED: bisacodyL 10 MG SUPP RECTAL STA (14:40)
[2022-11-29] MEDS: SODIUM CHLORIDE 0.9% 1,000 ML IV SCH ×2 (15:40→18:31)
[2022-11-30] MEDS: KETOROLAC 15 MG/ML 1 ML VIAL IVP SCH ×4 (05:53→23:14)
--- NOTE | 2022-11-30 06:18 | P.PN ---
Subjective Progress Note Date: 11/29/22 - Chief Complaint Abdominal pain Hospital course: This is a pleasant 67-year-old patient follows Dr. Garay. Chronic stable medical conditions include hypertension, does take Cialis,. Yesterday afternoon patient started developing cramping in the abdomen. Followed by nausea. No fever no chills. Had a bowel movement before coming to the hospital. Started having significant abdominal pain. Computed tomography scan in the ER didn't show suspicion for possible/complete small bowel obstruction. With a transition point. Suspicion for adhesions. NG tube was placed. This morning still having some abdominal pain to better. After pain medication s. at the bedside. No fever no chills. No cardiac history. Dr. Li is planning to take the patient to THIS afternoon. November 25: Patient underwent lysis of adhesions yesterday. Has abdominal binder. Dr. morris from urology had to place a 12-Kyrgyz Espino catheter. As patient not able to urinate. Patient has an epidural for pain control. No flatus. Discussed with patient and at the at bedside Late in the evening nurse called me that patient's febrile 101. Given the catheterization empirically starting the patient on IV Levaquin. Blood cultures chest x-ray UA and culture have been ordered. April 26: Temperature 100.5 overnight. On IV Zosyn. IV fluids. Epidural. Remains nothing by mouth. Some abdominal distention. Using incentive spirometry. Chest x-ray showing 3.1 cm mass. Well-circumscribed. Pulmonary was consulted.-[place] to be external artifact. UA unremarkable. No flatus. No respiratory symptoms. 11/29/2022 Patient is seen and evaluated follow-up status post exploratory laparotomy with lysis of adhesions for small bowel obstruction. Patient admitted to general surgery being closely monitored. Patient is being advanced diet and reports to having cast with no bowel movement as of yet. Patient with some urinary retention requiring indwelling Espino catheter to be placed by urology and they recommending continuing with Espino catheter for now and possible trial void closer to discharge. Patient reports has been getting up and walking encouraged to increase activity as tolerated. Recommend incentive spirometer at the bedside at least 10 times every hour while awake. Patient reports he has no further fevers and WBC is normal and refusing any further antibiotics. IV Levaquin discontinued. Urinalysis was negative blood cultures as well. Will monitor off antibiotic therapy. Active Medications Acetaminophen (Acetaminophen Tab 325 Mg Tab) 650 mg PO Q6HR PRN PRN Reason: Fever and/ or Pain Last Admin: 11/25/22 20:59 Dose: 650 mg Hydrocodone Bitart/Acetaminophen (Hydrocodone/Apap 7.5-325mg 1 Each Tab) 1 each PO Q4H PRN PRN Reason: Pain Last Admin: 11/29/22 23:43 Dose: 1 each Clonidine HCl (Clonidine 0.1 Mg/24hr Patch) 1 patch TRANSDERM Q7D [facility] Last Admin: 11/25/22 16:38 Dose: 1 patch Famotidine (Famotidine 20 Mg/2 Ml Vial) 20 mg IV DAILY [facility] Last Admin: 11/29/22 08:35 Dose: 20 mg Heparin Sodium (Porcine) (Heparin Sodium,Porcine/Pf 5,000 Unit/0.5 Ml Syringe) 5,000 unit SQ Q12HR [facility] Last Admin: 11/29/22 20:06 Dose: 5,000 unit Hydromorphone HCl (Hydromorphone 1 Mg/Ml 1 Ml Syringe) 1 mg IVP Q3HR PRN PRN Reason: Pain Last Admin: 11/28/22 13:05 Dose: 1 mg Sodium Chloride (Saline 0.9%) 1,000 mls @ 40 mls/hr IV .Q24H [facility] Last Admin: 11/29/22 18:31 Dose: 40 mls/hr Ketorolac Tromethamine (Ketorolac 15 Mg/Ml 1 Ml Vial) 15 mg IVP Q6HR [facility] Stop: 12/01/22 13:31 Last Admin: 11/30/22 05:53 Dose: 15 mg Lisinopril (Lisinopril 10 Mg Tab) 10 mg PO DAILY [facility] Last Admin: 11/29/22 08:35 Dose: 10 mg Naloxone HCl (Naloxone 0.4 Mg/Ml 1 Ml Vial) 0.2 mg IV Q2M PRN PRN Reason: Opioid Reversal Ondansetron HCl (Ondansetron 4 Mg/2 Ml Vial) 4 mg IVP Q8HR PRN PRN Reason: Nausea And Vomiting Last Admin: 11/23/22 16:05 Dose: 4 mg Triamcinolone Acetonide (Triamcinolone Acet 0.1% Oral Paste 5 Gm Tube) 1 applic MUCOUS MEM PC-TID [facility] Last Admin: 11/29/22 18:08 Dose: 1 applic Physical examination: GENERAL: Sitting up in bed EYES: Pupils equal. Conjunctiva normal. HEENT: External appearance of nose and ears normal, oral cavity grossly normal. NG tube to suction NECK: JVD not raised; masses not palpable. HEART: First and second heart sounds are normal; no edema. LUNGS: Respiratory rate normal; clear to auscultation. ABDOMEN: Soft, tender, binder in place. Espino catheter. Urine clear. PSYCH: Alert and oriented x3; mood and affect normal. Assessment: -Small bowel obstruction with lysis of adhesions on November [address] 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 Patient is now afebrile with no signs of infection and WBCs is within normal limits, or analysis was negative and blood cultures remain negative, patient is refusing antibiotics -Essential hypertension -Full code Plan: Recommend to continue with current medications and management with general surgery attending Continue gentle IV fluids patient was given a bolus this morning for lower blood pressures recommend monitoring blood pressures closely Patient was started on IV Levaquin although refusing reports has no white count and no fever, will discontinue and monitor off antibiotics Patient reports is passing gas but no bowel movement as of yet and encouraged increased activity as tolerated Diet advance pressure history Urology following as well recommend trial of voiding over the next day or so once closer to discharge and will continue with indwelling Espino catheter for retention Due to multiple complex medical issues, prognosis is guarded We will continue to follow with general surgery during hospitalization. Thank you kindly for this consultation. The impression and plan of care has been dictated by nurse patience Paredes ctitioner as directed. Dr. Felipa MD I have performed a history and examination and MDM of this patient, discussed the same with the dictator, and agree with the dictator's assessment and plan as written ,documented as a scribe. Based on total visit time, I have performed more than 50% of the visit. Any additional findings or plans will be noted. Objective - Vital Signs Vital signs: Vital Signs Temp 97.6 F 11/29/22 07:20 Pulse 62 11/29/22 07:20 Resp 18 11/29/22 07:20 BP 151/86 11/29/22 07:20 Pulse Ox 97 11/29/22 07:20 FiO2 21 11/28/22 07:53 Intake & Output 11/28/22 11/29/22 11/29/22 18:59 06:59 18:59 Intake Total 590 Output Total 700 200 Balance -700 390 Intake: Oral 590 Output: Urine 700 200 Other: Voiding Method Indwelling Catheter Indwelling Catheter Indwelling Catheter # Voids 4 - Labs CBC & Chem 7: 11/27/22 06:22 11/27/22 06:22 Labs: Microbiology - Last 24 Hours (Table) 11/25/22 20:43 Blood Culture - Preliminary Blood No Growth after 72 hours 11/25/22 20:43 Blood Culture - Preliminary Blood No Growth after 72 hours
[2022-11-30] MEDS: FAMOTIDINE 20 MG/2 ML VIAL IV SCH (08:00)
[2022-11-30] MEDS: HEPARIN SODIUM,PORCINE/PF 5,000 UNIT/0.5 ML SYRINGE SQ SCH ×2 (08:00→20:20)
[2022-11-30] MEDS: lisinopriL 10 MG TAB PO SCH (08:00)
[2022-11-30] MEDS: TRIAMCINOLONE ACET 0.1% ORAL PASTE 5 GM TUBE MUCOUS MEM SCH ×3 (08:00→18:19)
[2022-11-30 09:16] LABS: Basophils # (A) 0.01 X 10*3/uL (0.00-0.10); Basophils % (A) 0.2 %; Eosinophils # (A) 0.09 X 10*3/uL (0.04-0.35); Eosinophils % (A) 2.1 %; HCT 37.1 % (39.6-50.0); HGB 11.7 g/dL (13.0-17.0); Immature Grans, Automated 0.5 %; Lymphocytes # (A) 1.66 X 10*3/uL (0.90-5.00); MCH 28.1 pg (27.0-32.0); MCHC 31.5 g/dL (32.0-37.0); MCV 89.2 fL (80.0-97.0); Mean Platelet Volume 11.2 fL (9.5-12.2); Monocytes # (A) 0.51 X 10*3/uL (0.20-1.00); Monocytes % (A) 11.7 %; NRBC Per 100 WBC 0 /100 WBCS (0.0-0.0); Neutrophils # (A) 2.08 X 10*3/uL (1.80-7.70); Neutrophils % (A) 47.5 %; Platelet Count 185 X 10*3/uL (140-440); RBC 4.16 X 10*6/uL (4.40-5.60); RDW 12.6 % (11.5-14.5); WBC 4.37 X 10*3/uL (4.50-10.00)
--- NOTE | 2022-11-30 11:17 | P.PN ---
Subjective Progress Note Date: 11/30/22 The patient is a 67-year-old male with a past medical history significant for hypertension, bowel obstruction, and prostate cancer. The patient had a robotic prostatectomy in 2008 at [facility]. No evidence of prostate cancer recurrence and per patient his PSA has been undetectable. Since the prostatectomy he and has had difficulty voiding and urinary incontinence which has progressively gotten worse. No history of UTIs or previous urinary retention. His symptoms are worrisome for a bladder neck contracture. He underwent a exploratory laparotomy with lysis of adhesions with on 11/24/22. The patient does have an epidural for pain management. A Pradhan catheter was unable to be placed in the operating room. Postoperatively the patient was unable to void and had suprapubic pressure. Urology was consulted for a Pradhan catheter placement. Dr. Su was able to insert a 12-Yoruba Pradhan catheter with return of clear urine. 11/29 The Pradhan catheter is draining clear yellow urine. 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 The catheter may be removed when no longer medically needed, and he will follow up with Dr. Su as an outpatient. Dr. Fletcher was notified that the patient was having penile edema. Objective - Vital Signs Vital signs: Vital Signs Temp 97.4 F L 11/30/22 07:28 Pulse 59 L 11/30/22 07:28 Resp 16 11/30/22 07:28 BP 158/86 11/30/22 07:28 Pulse Ox 98 11/30/22 07:28 FiO2 21 11/29/22 20:07 Intake & Output 11/29/22 11/30/22 11/30/22 18:59 06:59 18:59 Intake Total 590 Output Total 1650 700 Balance -1650 -110 Weight 63.957 kg Intake: Oral 590 Output: Urine 1650 700 Other: Voiding Method Indwelling Catheter Indwelling Catheter - Exam - General no distress, moderate pain - Eyes normal ocular movement, no pale - ENT normal nares, normal mucosa - Respiratory normal expansion, normal respiratory effort - Abdomen Abdomen: soft, no distended - Genitourinary Penile and scrotal edema present, pradhan catheter present with clear yellow urine draining - Psychiatric oriented to time, oriented to person, oriented to place - Labs CBC & Chem 7: 11/30/22 05:34 11/27/22 06:22 Labs: Abnormal Lab Results - Last 24 Hours (Table) 11/30/22 Range/Units 05:34 WBC 4.37 L (4.50-10.00) X 10*3/uL RBC 4.16 L (4.40-5.60) X 10*6/uL Hgb 11.7 L (13.0-17.0) g/dL Hct 37.1 L (39.6-50.0) % MCHC 31.5 L (32.0-37.0) g/dL Microbiology - Last 24 Hours (Table) 11/25/22 20:43 Blood Culture - Preliminary Blood No Growth after 96 hours 11/25/22 20:43 Blood Culture - Preliminary Blood No Growth after 96 hours Assessment and Plan Assessment: The patient was seen lying in bed. The patient has some dependent penile and scrotal edema due to IV fluids and inactivity. We expect this to improve without any intervention as the patient increases his activity level. The patient's Pradhan catheter removal discussed with surgical PA. The patient's Pradhan catheter to be removed now. The patient will be encouraged to drink fluids and the patient must void before being discharged today. Plan: - Remove Pradhan catheter, okay with Dr. Li - Patient may be discharged from a urological standpoint after he voids - Follow up with Dr. Su and our office in 1-2 weeks Impression and plan of care have been directed as dictated by the signing physician. Anum Benitez nurse practitioner acting as scribe for signing physician. Anum Benitez [facility] Palliative Care/Urology [facility] [id number] Email: [email or web address] I have personally seen and examined the patient, reviewed the documentation and agree with the assessment and plan as written. Number of minutes spent on the visit: 15. Gulshan Fletcher MD
--- NOTE | 2022-11-30 15:52 | P.PN ---
Subjective Progress Note Date: 11/30/22 CHIEF COMPLAINT: Small bowel obstruction HISTORY OF PRESENT ILLNESS: Patient is postop day #6 status post exploratory laparotomy with lysis of adhesion and incidental appendectomy for small bowel obstruction secondary to adhesions. Patient reports his pain is better today. He is having bowel movements. Denies any nausea or vomiting. Did tolerate regular diet. Patient is worried about urinary retention. He does have an stricture. Followed by urology. Espino catheter removed. Patient being sanam tored for any urinary retention. Afebrile. Hemoglobin 11.7 Patient seen and examined with Dr. hearn PHYSICAL EXAM: VITAL SIGNS: Reviewed. GENERAL: Well-developed in no acute distress. HEENT: No sclera icterus. Extraocular movements grossly intact. Moist buccal mucosa. Head is atraumatic, normocephalic. ABDOMEN: Soft. Mildly distended. Incisional dressing clean dry and intact NEUROLOGIC: Alert and oriented. Cranial nerves II through XII grossly intact. ASSESSMENT: 1. Small bowel obstruction secondary to adhesions status post exploratory laparotomy with lysis of adhesions and incidental appendectomy 2. Fever likely due to atelectasis. Fever resolved. PLAN: -Continue regular diet -Monitor for urinary retention -Anticipate discharge tomorrow -Encouraged patient to use incentive spirometer -Encouraged patient to increase activity level -DVT prophylaxis subcu heparin and GI prophylaxis Physician Pocketbook Maker note has been reviewed by physician. Signing provider agrees with the documented findings, assessment, and plan of care. Objective - Vital Signs Vital signs: Vital Signs Temp 97.4 F L 11/30/22 07:28 Pulse 59 L 11/30/22 07:28 Resp 16 11/30/22 07:28 BP 158/86 11/30/22 07:28 Pulse Ox 98 11/30/22 07:28 FiO2 21 11/29/22 20:07 Intake & Output 11/29/22 11/30/22 11/30/22 18:59 06:59 18:59 Intake Total 590 Output Total 9164 027 7857 Balance -1650 -110 -1500 Weight 63.957 kg Intake: Oral 590 Output: Urine 4946 [id number] Uretheral (Espino) 1500 Other: Voiding Method Indwelling Catheter Indwelling Catheter Indwelling Catheter - Labs CBC & Chem 7: 11/30/22 05:34 11/27/22 06:22 Labs: Abnormal Lab Results - Last 24 Hours (Table) 11/30/22 Range/Units 05:34 WBC 4.37 L (4.50-10.00) X 10*3/uL RBC 4.16 L (4.40-5.60) X 10*6/uL Hgb 11.7 L (13.0-17.0) g/dL Hct 37.1 L (39.6-50.0) % MCHC 31.5 L (32.0-37.0) g/dL Microbiology - Last 24 Hours (Table) 11/25/22 20:43 Blood Culture - Preliminary Blood No Growth after 96 hours 11/25/22 20:43 Blood Culture - Preliminary Blood No Growth after 96 hours
--- NOTE | 2022-12-01 03:39 | P.PN ---
Subjective Progress Note Date: 11/30/22 - Chief Complaint Abdominal pain Hospital course: This is a pleasant 67-year-old patient follows Dr. Garay. Chronic stable medical conditions include hypertension, does take Cialis,. Yesterday afternoon patient started developing cramping in the abdomen. Followed by nausea. No fever no chills. Had a bowel movement before coming to the hospital. Started having significant abdominal pain. Computed tomography scan in the ER didn't show suspicion for possible/complete small bowel obstruction. With a transition point. Suspicion for adhesions. NG tube was placed. This morning still having some abdominal pain to better. After pain medication s. at the bedside. No fever no chills. No cardiac history. Dr. Li is planning to take the patient to THIS afternoon. November 25: Patient underwent lysis of adhesions yesterday. Has abdominal binder. Dr. morris from urology had to place a 12-Kinyarwanda Espino catheter. As patient not able to urinate. Patient has an epidural for pain control. No flatus. Discussed with patient and at the at bedside Late in the evening nurse called me that patient's febrile 101. Given the catheterization empirically starting the patient on IV Levaquin. Blood cultures chest x-ray UA and culture have been ordered. April 26: Temperature 100.5 overnight. On IV Zosyn. IV fluids. Epidural. Remains nothing by mouth. Some abdominal distention. Using incentive spirometry. Chest x-ray showing 3.1 cm mass. Well-circumscribed. Pulmonary was consulted.-[place] to be external artifact. UA unremarkable. No flatus. No respiratory symptoms. 11/29/2022 Patient is seen and evaluated follow-up status post exploratory laparotomy with lysis of adhesions for small bowel obstruction. Patient admitted to general surgery being closely monitored. Patient is being advanced diet and reports to having cast with no bowel movement as of yet. Patient with some urinary retention requiring indwelling Espino catheter to be placed by urology and they recommending continuing with Espino catheter for now and possible trial void closer to discharge. Patient reports has been getting up and walking encouraged to increase activity as tolerated. Recommend incentive spirometer at the bedside at least 10 times every hour while awake. Patient reports he has no further fevers and WBC is normal and refusing any further antibiotics. IV Levaquin discontinued. Urinalysis was negative blood cultures as well. Will monitor off antibiotic therapy. 11/30/2022 Patient is seen and evaluated in follow-up this morning with general surgery at the bedside. Surgical site is dry and intact. Plan is for Espino to be removed with trial voiding and urology following. Patient reports to passing gas and is having bowel movements and has been up and walking frequently. Patient co ntinues to be afebrile and monitored off antibiotics doing well and discussing possible discharge in 24 hours. Encouraged incentive spirometer loose at times every hour while awake. Diet being advanced per surgery and tolerating thus far with no reports of nausea or vomiting noted. Review of systems: Constitutional: No reports of fatigue, fever, or chills Cardiovascular: No reports of chest pain or palpitations Respiratory: No reports of shortness of breath or cough GI: No reports of nausea, vomiting, or diarrhea, reports passing gas and had bowel movements : No reports of dysuria or retention Neurovascular: No reports of weakness or numbness All medications have been reviewed Physical examination: GENERAL: Sitting up in bed EYES: Pupils equal. Conjunctiva normal. HEENT: External appearance of nose and ears normal, oral cavity grossly normal. NECK: JVD not raised; masses not palpable. HEART: First and second heart sounds are normal; no edema. LUNGS: Respiratory rate normal; clear to auscultation. ABDOMEN: Soft, tender, binder in place. Surgical site is dry and intact PSYCH: Alert and oriented x3; mood and affect normal. Assessment: -Small bowel obstruction with lysis of adhesions on November [address] 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 Patient is now afebrile with no signs of infection and WBCs is within normal limits, urinalysis was negative and blood cultures remain negative, patient is refusing antibiotics -Essential hypertension -Full code Plan: Recommend to continue with current medications and management with general surgery as attending Continue gentle IV fluids patient was given a bolus this morning for lower blood pressures recommend monitoring blood pressures closely Patient was started on IV Levaquin although refusing reports has no white count and no fever, will discontinue and monitor off antibiotics Patient reports is passing gas and is having bowel movements, encouraged increased activity as tolerated Diet advance per surgery Urology following as well recommend trial of voiding and removal of indwelling Espino catheter and monitor for any retention Due to multiple complex medical issues, prognosis is guarded We will continue to follow with general surgery during hospitalization. Thank you kindly for this consultation. Discussing discharge in 24 hours The impression and plan of care has been dictated by Kamila Llanos, nurse practitioner as directed. Dr. Felipa MD I have performed a history and examination and MDM of this patient, discussed the same with the dictator, and agree with the dictator's assessment and plan as written ,documented as a scribe. Based on total visit time, I have performed more than 50% of the visit. Any additional findings or plans will be noted. Objective - Vital Signs Vital signs: Vital Signs Temp 97.4 F L 11/30/22 07:28 Pulse 59 L 11/30/22 07:28 Resp 16 11/30/22 07:28 BP 158/86 11/30/22 07:28 Pulse Ox 98 11/30/22 07:28 FiO2 21 11/29/22 20:07 Intake & Output 11/29/22 11/30/22 11/30/22 18:59 06:59 18:59 Intake Total 590 Output Total 1650 700 Balance -1650 -110 Weight 63.957 kg Intake: Oral 590 Output: Urine 1650 700 Other: Voiding Method Indwelling Catheter Indwelling Catheter - Labs CBC & Chem 7: 11/30/22 05:34 11/27/22 06:22 Labs: Abnormal Lab Results - Last 24 Hours (Table) 11/30/22 Range/Units 05:34 WBC 4.37 L (4.50-10.00) X 10*3/uL RBC 4.16 L (4.40-5.60) X 10*6/uL Hgb 11.7 L (13.0-17.0) g/dL Hct 37.1 L (39.6-50.0) % MCHC 31.5 L (32.0-37.0) g/dL Microbiology - Last 24 Hours (Table) 11/25/22 20:43 Blood Culture - Preliminary Blood No Growth after 96 hours 11/25/22 20:43 Blood Culture - Preliminary Blood No Growth after 96 hours
[2022-12-01] MEDS: KETOROLAC 15 MG/ML 1 ML VIAL IVP SCH (05:33)
[2022-12-01] MEDS: lisinopriL 10 MG TAB PO SCH (07:43)
[2022-12-01] MEDS: TRIAMCINOLONE ACET 0.1% ORAL PASTE 5 GM TUBE MUCOUS MEM SCH (07:43)
[2022-12-01] MEDS: HEPARIN SODIUM,PORCINE/PF 5,000 UNIT/0.5 ML SYRINGE SQ SCH (07:43)
[2022-12-01 07:52] VITALS: BP 176/81; PULSE 69; TEMP 98.6
[2022-12-01] MEDS ORDERED: FAMOTIDINE 20 MG TAB PO SCH (09:00)
--- NOTE | 2022-12-01 09:20 | P.PN ---
Progress Note - Text Progress Note Date: 12/01/22 Patient is a 67-year-old male who is post op day #7 status post exploratory laparotomy with lysis of adhesions and incidental appendectomy for small bowel obstruction secondary to adhesions. Postoperatively the patient was unable to void. The patient has a known bladder neck contracture. Urology was consulted and placed a Espino catheter. Espino catheter was removed by nursing staff yesterday and the patient states he is able to void without difficulty. The patient reports he has been more active and his penile and scrotal edema have improved. The patient was instructed to follow-up with Dr. Su and our office in 1-2 weeks to discuss treatment options for his bladder neck contractur e. The patient is being discharged today. Impression: 1) Vesical neck contracture. 2) Penoscrotal edema, improved. Impression and plan of care have been directed as dictated by the signing physician. Anum Benitez nurse practitioner acting as scribe for signing physician. Anum Benitez [facility] Palliative Care/Urology [facility] [id number] Email: [email or web address] I have personally seen and examined the patient, reviewed the documentation and agree with the assessment and plan as written. Number of minutes spent on the visit: 10. Gulshan Fletcher MD
--- NOTE | 2022-12-01 11:06 | P.DS ---
Providers Date of admission: 11/23/22 13:45 Expected date of discharge: 12/01/22 Attending physician: Theron Li Consults: 11/23/22 14:10 Consult Physician Routine Consulting Provider: Manfred Beaulieu Consult Reason/Comments: Medical management Do you want consulting provider notified?: Yes 11/24/22 15:24 Consult Physician Routine Consulting Provider: Stefan Su Consult Reason/Comments: Espino catheter insertion, urethral stricture status post prostatectomy, epi Do you want consulting provider notified?: Yes 11/26/22 06:03 Consult Physician Routine Consulting Provider: Sandy Koroma Consult Reason/Comments: 3.1 cm round mass on xray Do you want consulting provider notified?: Yes Primary care physician: Kishan Garay [facility] Course: Discharge diagnosis 1. Small bowel obstruction secondary to adhesions status post exploratory laparotomy with lysis of adhesions and incidental appendectomy 2. Fever likely due to atelectasis. Fever resolved. 3. Bladder neck contracture. Followed by urology. Hospital course This is a 67-year-old male with a known history of small bowel obstructions been treated conservatively in the past. Patient presented with mid abdominal pain. He had a computed tomography scan that showed partial or early complete small bowel obstruction. Patient had NG tube placed. Patient status post exploratory laparotomy with lysis of adhesions and incidental appendectomy for small bowel obstruction secondary to adhesions. Patient has tolerated surgery well. His pain is controlled. He is having bowel movements. He is urinating without difficulty. He has been up and ambulating. He is afebrile. He is stable for discharge. He has been cleared by consulting physicians for discharge. Please refer to chart for any further details. Physician Engine Lathe Set Up Operator note has been reviewed by physician. Signing provider agrees with the documented findings, assessment, and plan of care. Patient Condition at Discharge: Stable Plan - Discharge Summary Discharge Rx Participant: No New Discharge Prescriptions: New Ibuprofen [Motrin] 600 mg PO Q8HR PRN #30 tab PRN Reason: Pain HYDROcodone/APAP 5-325MG [[place] 5-325] 1 tab PO Q6HR PRN 3 Days #12 tab PRN Reason: Pain Acetaminophen Tab [Tylenol Tab] 650 mg PO Q4H PRN #30 tablet PRN Reason: Pain Famotidine [Pepcid] 20 mg PO DAILY #30 tab Acetaminophen Tab [Tylenol] 650 mg PO Q6HR PRN tab PRN Reason: Fever And/ Or Pain Lisinopril-Hctz 10-12.5 mg [Zestoretic 10-12.5] 1 each PO BID #60 tab Continue Multivitamins, Thera [Multivitamin (formulary)] 1 tab PO DAILY Cholecalciferol (Vitamin D3) [Vitamin D3 (125 MCG = 5,000 IU)] 250 mcg PO DAILY tadalafiL [Cialis] 5 mg PO DAILY Quercetin 500mg Tab 500 mg PO DAILY [place]-3/Dha/Epa/Fish Oil [Fish Oil 1,000 mg Softgel] 1 cap PO DAILY Zinc 25 mg PO DAILY Ascorbic Acid [Vitamin C] 1,000 mg PO DAILY Discontinued lisinopriL [Prinivil] 10 mg PO DAILY Discharge Medication List Cholecalciferol (Vitamin D3) [Vitamin D3 (125 MCG = 5,000 IU)] 250 mcg PO DAILY 05/04/22 [History] Multivitamins, Thera [Multivitamin (formulary)] 1 tab PO DAILY 05/04/22 [History] [place]-3/Dha/Epa/Fish Oil [Fish Oil 1,000 mg Softgel] 1 cap PO DAILY 05/04/22 [History] Zinc 25 mg PO DAILY 05/04/22 [History] tadalafiL [Cialis] 5 mg PO DAILY 05/04/22 [History] Ascorbic Acid [Vitamin C] 1,000 mg PO DAILY 11/23/22 [History] Quercetin 500mg Tab 500 mg PO DAILY 11/23/22 [History] Acetaminophen Tab [Tylenol Tab] 650 mg PO Q4H PRN #30 tablet 12/01/22 [Rx] Acetaminophen Tab [Tylenol] 650 mg PO Q6HR PRN tab 12/01/22 [Rx] Famotidine [Pepcid] 20 mg PO DAILY #30 tab 12/01/22 [Rx] HYDROcodone/APAP 5-325MG [[place] 5-325] 1 tab PO Q6HR PRN 3 Days #12 tab 12/01/22 [Rx] Ibuprofen [Motrin] 600 mg PO Q8HR PRN #30 tab 12/01/22 [Rx] Lisinopril-Hctz 10-12.5 mg [Zestoretic 10-12.5] 1 each PO BID #60 tab 12/01/22 [Rx] Follow up Appointment(s)/Referral(s): Kishan Garay DO [Primary Care Provider] - 1 Week (The doctors office will call patient to make an appointment when they have an opening.) Stefan Su MD [STAFF PHYSICIAN] - 2 Weeks (Patient needs to call to make a follow up appointment.) Theron Li MD [STAFF PHYSICIAN] - 12/16/22 2:45 pm Activity/Diet/Wound Care/Special Instructions: No driving while taking [place] No lifting over 10 pounds Shower daily. No soaking or tub baths for 2 weeks Very light activity until you are reevaluated at your follow up appointment with your surgeon Discharge Disposition: HOME SELF-CARE
--- NOTE | 2022-12-01 18:08 | P.PN ---
Progress Note - Text Progress Note Date: 12/01/22 - Chief Complaint Abdominal pain Hospital course: This is a pleasant 67-year-old patient follows Dr. Garay. Chronic stable medical conditions include hypertension, does take Cialis,. Yesterday afternoon patient started developing cramping in the abdomen. Followed by nausea. No fever no chills. Had a bowel movement before coming to the hospital. Started having significant abdominal pain. Computed tomography scan in the ER didn't show suspicion for possible/complete small bowel obstruction. With a transition point. Suspicion for adhesions. NG tube was placed. This morning still having some abdominal pain to better. After pain m edications. at the bedside. No fever no chills. No cardiac history. Dr. Li is planning to take the patient to THIS afternoon. November 25: Patient underwent lysis of adhesions yesterday. Has abdominal binder. Dr. morris from urology had to place a 12-Guinean Espino catheter. As patient not able to urinate. Patient has an epidural for pain control. No flatus. Discussed with patient and at the at bedside Late in the evening nurse called me that patient's febrile 101. Given the catheterization empirically starting the patient on IV Levaquin. Blood cultures chest x-ray UA and culture have been ordered. 12/01/2022: I assumed care of the patient today. Patient is making urine after DC of Espino. Has some down pain. Tolerating diet. Had a BM. Blood pressures running on the higher side. DC Catapres patch. Change blood pressure meds to lisinopril hydrochlorothiazide 10/12.5 twice a day. Patient to follow-up with his PCP and check blood pressure daily. Questions answered. Past medical history to include: Hypertension, prostate cancer, followed by surgery, prior bowel obstruction not requiring surgery 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 Physical examination: VITAL SIGNS: 98.6, 68, 16, 1 7681, 97% room air GENERAL: Sitting up in chair EYES: Pupils equal. Conjunctiva normal. HEENT: External appearance of nose and ears normal, oral cavity grossly normal. NG tube to suction NECK: JVD not raised; masses not palpable. HEART: First and second heart sounds are normal; no edema. LUNGS: Respiratory rate normal; clear to auscultation. ABDOMEN: Soft, tender, binder in place. . PSYCH: Alert and oriented x3; mood and affect normal. INVESTIGATIONS, reviewed in the clinical context: November 30: White count 4.3 hemoglobin 11.7 platelets 185 November 25: White count 7.3 mm globin 13.3 platelets 134 potassium 4.4 creatinine 0.69 White count 6.8 hemoglobin 13.3 platelets 195 potassium 4.4 creatinine 0.7 Abdominal x-ray film personally reviewed by me: Multiple loops of small bowel dilated with air-fluid levels. Gases stool present in the colon. CT abdomen and pelvis: Suspicion possible/early complete small bowel obstruction. With the right lower quadrant transition suspected. Assessment and plan: -Small bowel obstruction with lysis of adhesions on November [address] Li Tolerating diet. -Bladder outflow obstruction 12-Guinean Espino catheter placed by Dr. morris-discontinued -Postoperative fever. 101.1: Resolved UA unremarkable. Blood culture negative -Essential hypertension Lisinopril hydrochlorothiazide 08/11.5 one tablet twice a day -Full code
[2022-12-01] MEDS ORDERED: LISINOPRIL-HCTZ 10-12.5 MG 1 EACH TAB PO SCH (21:00)
== END 2022-12-01 11:44 | disposition home or self-care (01) | DRG 336 ==
LOC: EC 08:44 → 5NMEDONC 13:45
PROVIDERS: ADMIT Surgery; ATTEND Surgery
PROC: 0D9670Z Drainage of Stomach with Drainage Device, Via Natural or Artificial Opening (ICD-10-PCS; 2022-11-23)
PROC: 0T9B70Z Drainage of Bladder with Drainage Device, Via Natural or Artificial Opening (ICD-10-PCS; 2022-11-24)
PROC: 0DNB0ZZ Release Ileum, Open Approach (ICD-10-PCS; principal; 2022-11-24 07:30)
PROC: 0DTJ0ZZ Resection of Appendix, Open Approach (ICD-10-PCS; principal; 2022-11-24 07:30)
DX: K56.52 Intestinal adhesions [bands] with complete obstruction (principal); J98.11 Atelectasis; R00.0 Tachycardia, unspecified; N32.0 Bladder-neck obstruction; N48.89 Other specified disorders of penis; N50.89 Other specified disorders of the male genital organs; I10 Essential (primary) hypertension; Z85.46 Personal history of malignant neoplasm of prostate; Z79.899 Other long term (current) drug therapy; Z71.3 Dietary counseling and surveillance; Z88.0 Allergy status to penicillin; Z87.19 Personal history of other diseases of the digestive system; Z90.79 Acquired absence of other genital organ(s)
CPT/HCPCS: 36415; 71045; 74018; 74177; 80048; 80053; 81003; 83605; 85025; 85027; 87040; 88304; 94760; 96361; 96374; 96375; 96376; 99285

== ENCOUNTER → 2023-08-03 | Outpatient (CLI) | payer MEDICARE, BC ==
[2023-08-03 10:00] LABS: Appearance,Urine Clear (Clear); Bilirubin,Urine Negative (Negative); Blood,Urine Negative (Negative); Color,Urine Light Yellow; Glucose,Urine (UA) Negative (Negative); Ketones,Urine Negative (Negative); Leukocyte Esterase,Urine Negative (Negative); Nitrite,Urine Negative (Negative); PH, Urine 6.5 (5.0-8.0); Protein,Urine Negative (Negative); Specific Gravity,Urine 1.018 (1.001-1.035); Urobilinogen,Urine <2.0 mg/dL (<2.0)
[2023-08-03 16:10] LABS: BUN/Creat Ratio 17.56 Ratio (12.00-20.00); Blood Urea Nitrogen 15.8 mg/dL (9.0-27.0); Calcium 9.3 mg/dL (8.7-10.3); Chloride 105 mmol/L (96-109); Glucose 99 mg/dL (70-110); Potassium 4.5 mmol/L (3.5-5.5); Sodium 144 mmol/L (135-145)
[2023-08-03 16:14] LABS: HCT 49.5 % (39.6-50.0); HGB 15.7 d/dL (13.0-17.0); MCHC 31.7 d/dL (32.0-37.0); MCV 91.5 FL (80.0-97.0); Mean Platelet Volume 11.4 FL (9.5-12.2); NRBC Per 100 WBC 0 X 10*3/uL (0.00-0.01); Platelet Count 202 X 10*3/uL (140-440); RBC 5.41 X 10*6/uL (4.40-5.60); RDW 12.5 % (11.5-14.5); WBC 6.56 X 10*3/uL (4.50-10.00)
== END | disposition home or self-care (01) ==
LOC: LABPAT 09:23
PROVIDERS: ATTEND Urology
DX: Z01.812 Encounter for preprocedural laboratory examination (principal); N39.3 Stress incontinence (female) (male); R35.0 Frequency of micturition
CPT/HCPCS: 36415; 80048; 81003; 85027; 87086

== ENCOUNTER 2023-08-10 06:33 | Day surgery (SDC) | payer MEDICARE, BC ==
[2023-08-04 12:47] VITALS: BMI 25.0
[~2023-08-10 06:33] MED LIST changes: +GENTAMICIN 120 MG in SODIUM CHLORIDE 0.9% 100 ML IVPB PRN; +LIDOCAINE 1% (10MG/ML) FOR IV START INTRADERMA PRN; +ONDANSETRON 4 MG/2 ML VIAL IVP ONE; +VANCOMYCIN 750 MG in SODIUM CHLORIDE 0.9% 250 ML IVPB PRN
[2023-08-10] MEDS ORDERED: MIDAZOLAM 2 MG/2 ML VIAL IVP ONE (07:23)
[2023-08-10] MEDS ORDERED: SUCCINYLCHOLINE CHLORIDE 200 MG/10 ML VIAL IV ONE (07:35)
[2023-08-10] MEDS ORDERED: PROPOFOL 10 MG/ML 20 ML VIAL IV ONE (07:35)
[2023-08-10] MEDS ORDERED: LIDOCAINE 1% INJ 10MG/ML (20 ML MDV) ONE (07:35)
[2023-08-10] MEDS ORDERED: fentaNYL (PF) 50 MCG/ML 2 ML AMP ONE (07:35)
[2023-08-10] MEDS ORDERED: KETAMINE HCL IN 0.9 % NACL 50 MG/5 ML SYRINGE ONE (07:35)
--- NOTE | 2023-08-10 07:45 | P.HPIHPCON ---
History of Present Illness H&P Date: 08/10/23 Chief Complaint: Stress urinary incontinence This is a 68-year-old male patient history of stress urinary incontinence post- prostatectomy that was done more than 10 years ago at [facility]. His PSAs has been undetectable. He did develop bladder neck contracture which required dilation, repeat cystoscopy showed resolution of the contracture, he had persistent stress incontinence post contracture dilation. Option of sling versus artificial urinary sphincter versus a bulking agent were discussed with him in detail. Risks and benefit of each approach was discussed. He agreed to proceed with sling. The risk which includes but not limited to bleeding, infection, injury to the urethra, persistent stress incontinence, urinary retention, discussed and we'll be using mesh and there is risk of mesh erosion. Risk of anesthesia was also discussed Consent for Procedure: I have explained the operation/procedure to the patient, including the risks, benefits, side effects, alternative therapies (including not receiving the proposed treatment or service), the likelihood of the patient achieving his/her goals, and potential recuperation problems for the procedure/sedation/analgesia, as well as any blood products, if indicated. I also explained to the patient the risks, benefits and side effects of the alternatives, as well as the risks related to not receiving the proposed procedure, care, treatment, or services. Past Medical History Past Medical History: Cancer, GERD/Reflux, Prostate Disorder Additional Past Medical History / Comment(s): Bowel obstruction, prostate CA, S History of Any Multi-Drug Resistant Organisms: None Reported Past Surgical History: Appendectomy, Bowel Resection, Prostate Surgery Additional Past Surgical History / Comment(s): vasectomy, EXPLORATORY LAP WITH LYSIS OF ADHESIONS, COLONOSCOPY, BILAT CATARACTS REMOVED WITH LENS IMPLANTS Past Anesthesia/Blood Transfusion Reactions: No Reported Reaction Smoking Status: Never smoker - Past Family History Father Family Medical History: Cancer Brother(s) Family Medical History: Cancer Mother Family Medical History: Hypertension Medications and Allergies Home Medications Medication Instructions Recorded Confirmed Type Cholecalciferol (Vitamin D3) 250 mcg PO DAILY 05/04/22 08/10/23 History [Vitamin D3 (125 MCG = 5,000 IU)] Multivitamins, Thera [Multivitamin 1 tab PO DAILY 05/04/22 08/04/23 History (formulary)] [place]-3/Dha/Epa/Fish Oil [Fish Oil 1 cap PO DAILY 05/04/22 08/04/23 History 1,000 mg Softgel] Zinc 25 mg PO DAILY 05/04/22 08/10/23 History tadalafiL [Cialis] 5 mg PO DAILY 05/04/22 08/10/23 History Ascorbic Acid [Vitamin C] 1,000 mg PO DAILY 11/23/22 08/10/23 History HYDROcodone/APAP 5-325MG [[place] 1 tab PO Q6HR PRN 3 Days #12 tab 12/01/22 08/10/23 Rx 5-325] Ibuprofen [Motrin] 600 mg PO Q8HR PRN #30 tab 12/01/22 08/04/23 Rx Famotidine [Pepcid] 20 mg PO DAILY PRN 08/04/23 08/10/23 History Allergies Allergy/AdvReac Type Severity Reaction Status Date / Time Penicillins Allergy Rash/Hives Verified 08/10/23 06:52 Surgical - Exam Vital Signs Temp Pulse Resp BP Pulse Ox 97.5 F L 69 18 139/79 96 08/10/23 06:55 08/10/23 06:55 08/10/23 06:55 08/10/23 06:55 08/10/23 06:55 - General no distress, no pain - ENT normal nares, normal mucosa - Respiratory normal expansion, normal respiratory effort - Abdomen Abdomen: soft, non tender Assessment and Plan Assessment: OR for cystoscopy and a male sling
[2023-08-10] MEDS ORDERED: ceFAZolin 1,000 MG in SODIUM CHLORIDE 0.9% 1,000 ML IRRIGATION ONE (08:10)
[2023-08-10] MEDS: HYDROmorphone 0.5 MG/0.5 ML SYRINGE IVP PRN ×4 (09:22→10:11)
[2023-08-10 09:34] VITALS: TEMP 96.8
[2023-08-10] MEDS ORDERED: LACTATED RINGERS 1,000 ML IV ONE ×3 (09:55)
[2023-08-10] MEDS ORDERED: HYDROmorphone 0.5 MG/0.5 ML SYRINGE IVP ONE (10:41)
[2023-08-10] MEDS ORDERED: KETOROLAC 15 MG/ML 1 ML VIAL IVP ONE (11:38)
[2023-08-10 14:01] VITALS: RESP 16
[2023-08-10 15:46] VITALS: BP 164/95; PULSE 80
--- NOTE | 2023-08-10 17:49 | P.OP ---
Date of Procedure: 08/10/23 Preoperative Diagnosis: Stress urinary incontinence, Postoperative Diagnosis: Same Procedure(s) Performed: Male sling Implants: [employer] advance male sling Anesthesia: AURAA Surgeon: Stefan Su Carver Hand #1: Gregg Lindo Estimated Blood Loss (ml): 25 Pathology: none sent Condition: stable Disposition: PACU Indications for Procedure: This is a 68-year-old male patient history of stress urinary incontinence post-prostatectomy that was done more than 10 years ago at [facility]. His PSAs has been undetectable. He did develop bladder neck contracture which required dilation, repeat cystoscopy showed resolution of the contracture, he had persistent stress incontinence post contracture dilation. Option of sling versus artificial urinary sphincter versus a bulking agent were discussed with him in detail. Risks and benefit of each approach was discussed. He agreed to proceed with sling. The risk which includes but not limited to bleeding, infection, injury to the urethra, persistent stress incontinence, urinary retention, discussed and we'll be using mesh and there is risk of mesh erosion. Risk of anesthesia was also discussed Description of Procedure: Patient brought to the operating suite. Given a general anesthetic. He's placed lithotomy position with sterile prep and drape. A midline incision from the base of the scrotum to just above the anal opening is made. I dissect the subcutaneous tissue. I exposed the old spongiosum and urethra. Then a 12-Czech Espino catheters placed and the urethra. The bulbospongiosus is opened. Urethra is identified. I dissect lateral the urethra bilaterally. I then dissected inferiorly and identify the bulbar urethra which is detached from the perineal tendon. I then make incisions in the inguinal crease bilaterally. I passed the advance introducers through the obturator foramen beneath the pubis into the space lateral to the bulbospongiosus and bilaterally. I attached the advance graft to the introducers and pull them back through the groin. The graft lay nicely in the bulbar urethra. Secure the graft to the bulbar urethra with 4-0 Vicryl's. I then tightened the graft. I removed the Espino and introduce a cystoscope and see the coaptation of the urethra. I then closed the perineal incision with 2 deep layers of 4-0 Vicryl and then a subcutaneous 4- 0chromic. I closed the inguinal incisions with 4-0 chromic after removing the redundant graft. The patient is awake and returned recovery in good condition. Blood loss is minimal. He tolerated the procedure well be discharged home upon recovery.
[2023-08-10 20:14] LABS: Hepatitis B Surface Antigen Nonreactive; Hepatitis C IgG Antibody Nonreactive
== END 2023-08-10 16:10 | disposition home or self-care (01) ==
LOC: OR 06:33
PROVIDERS: ATTEND Urology
DX: N39.3 Stress incontinence (female) (male) (principal); K21.9 Gastro-esophageal reflux disease without esophagitis; Z90.49 Acquired absence of other specified parts of digestive tract; Z98.890 Other specified postprocedural states; Z82.49 Family history of ischemic heart disease and other diseases of the circulatory system; Z79.899 Other long term (current) drug therapy; Z88.0 Allergy status to penicillin
CPT/HCPCS: 53440; 86803; 86701; 87340; C1771; J2250; J3370; J0330; J2405; J0690; J2001; J3010; J1580; J1885; J2704; J1170

== ENCOUNTER → 2023-12-08 | Outpatient (CLI) | payer MEDICARE, BC ==
[2023-12-08 16:43] LABS: HCT 46.4 % (39.6-50.0); HGB 14.1 g/dL (13.0-17.0); MCH 28.5 pg (27.0-32.0); MCHC 30.4 g/dL (32.0-37.0); MCV 93.9 FL (80.0-97.0); Mean Platelet Volume 11.7 FL (9.5-12.2); NRBC Per 100 WBC 0 X 10*3/uL (0.00-0.01); Platelet Count 218 X 10*3/uL (140-440); RBC 4.94 X 10*6/uL (4.40-5.60); RDW 13.9 % (11.5-14.5); WBC 6.27 X 10*3/uL (4.50-10.00)
== END | disposition home or self-care (01) ==
LOC: LABWHC1 07:37
PROVIDERS: ATTEND Orthopaedic Surgery Sports Medicine
DX: M17.12 Unilateral primary osteoarthritis, left knee (principal)
CPT/HCPCS: 36415; 85027; 86850; 86900; 86901; 93005